=== PATIENT | female | born 1965 | race Caucasian/White ===

== ENCOUNTER → 2018-01-12 16:28 | Outpatient (CLI) | payer OTHER, BC, SELFPAY ==
--- NOTE | 2018-01-12 16:34 | HPBI_ITS ---
MAMMOGRAPHY - BILATERAL SCREENING REASON FOR EXAM: Female, 52 years old. Routine annual screening examination. PERTINENT HISTORY: Aunt with breast cancer. Remote left stereotactic biopsy. TECHNIQUE: Digital bilateral breast josé (3D mammographic acquisition) in the CC and MLO projections. 2-D mediolateral oblique (MLO) and craniocaudad (CC) views of both breasts were obtained. CAD: Full Field Digital Mammography with Computer Added Detection was performed. COMPARISON: Comparison is made with prior outside examination dated October 11, 2016. FINDINGS: Breast Composition: There are scattered areas of fibroglandular density. There are no dominant masses or suspicious calcifications. A tissue clip marker is seen in the deep mid medial portion of the left breast. No other significant abnormalities are identified. There has been no significant change since the prior study. HPBI/SCREENING MAMM (CAD), BILAT IMPRESSION: Stable bilateral screening mammogram. Yearly follow-up mammogram recommended. (A) ASSESSMENT CATEGORY: BIRADS Category 2: Benign. A letter regarding these results will be sent to the patient by the facility within 30 days. Approximately 10% of breast cancers are not detected by mammography. A normal mammogram should not delay biopsy of a clinically suspicious abnormality. [id number] Electronically Signed: Ang Morrissey MD at 8:59 EST Tel [phone], Service support ,
== END ==
PROVIDERS: Family Provider Family Medicine; PCP Family Medicine; Visit Provider Obstetrics & Gynecology
DX: Z12.31 Encounter for screening mammogram for malignant neoplasm of breast (principal)
CPT/HCPCS: 77063; 77067

== ENCOUNTER 2018-01-22 21:04 | Emergency (ER) | payer OTHER, BC, SELFPAY ==
[2018-01-22 21:05] VITALS: BP 158/95; PULSE 69; RESP 17; TEMP 37.2; O2SAT 100; BMI 27.8
--- NOTE | 2018-01-22 21:32 | EKG12_ITS ---
Test Reason : HYPERTENSION Blood Pressure : / mmHG Vent. Rate : 063 BPM Atrial Rate : 063 BPM P-R Int : 142 ms QRS Dur : 088 ms QT Int : 414 ms P-R-T Axes : 056 050 058 degrees QTc Int : 423 ms Normal sinus rhythm Nonspecific ST abnormality Abnormal ECG Confirmed by MATTHIEU SILVESTRE, DIOGENES ([id number]), editor continuity and script ABDIRIZAK GREEN ([id number]) on 01/24/2018 4:12:35 PM Referred By: Shawna Prince Confirmed By:DIOEGNES SOMMERS MD
--- NOTE | 2018-01-22 21:32 | ED.VISSUMM ---
- ER Visit Summary Date of Service: 01/22/18 Chief Complaint: Acute on chronic hypertension History of Present Illness: The patient is a 52 F prior history of hypertension for a 1 time she was on lisinopril. Her blood pressures got better and he took her off medication. Recently she has had URI type symptoms with sinus congestion and cough. Symptoms have been ongoing for about a week. [facility] her on Zithromax Z-SEAN. She denies any purulent discharge or sinus headache. She did recently help move a family member and had some left chest wall discomfort and low back discomfort. She denies any exertional chest pain or shortness of breath. She has no cardiac history. She is a non-smoker. Physical Examination: Well-appearing middle-age female. Initial vital signs blood pressure 150/95. Pulse ox 100% room air no signs of hypoxia. Temperature 99. Patient does not look septic or toxic. No acute distress. HEENT exam TMs normal. Posterior pharynx moist and pink. No frontal maxillary sinus tenderness. No purulent discharge. Neck nontender no lymphadenopathy. Lungs auscultation bilaterally. Heart regular rate and rhythm no murmur. Chest nontender. Abdomen soft nontender. Normal bowel sounds no peritoneal signs. Moving all 4 extremities. Neurovascular intact. Bilateral 5 out of 5 summer law associate strength. Bilateral dorsi plantar flexion. Back exam normal. Lungs are clear posteriorly. Neurologic exam normal. NIH is 0. Test Results: EKG shows normal sinus rhythm rate of 63 again abnormality. No signs of OK or ischemia. Emergency Department Course and Treatment: Likely patient has a viral URI. She can stop the Zithromax. Her repeat blood pressure is 144/91. Treatment Plan: Patient will be discharged to home. She will log her blood pressures twice daily. She will stay on the lisinopril daily. Follow-up with her primary care physician Dr. Jerry Brown and they will evaluate her blood pressures and decide further treatment. Disposition: Discharge Impression: Acute on chronic hypertension Viral URI This note was generated with M[employer] dictation software. It may contain incorrect words, spelling, and punctuation that were not noted in review of the chart prior to signing ED Disposition - Plan for ED Patient: Disposition: Home or Assisted Living Chief Complaint: Hypertension Instructions: ED HTN Established Referrals: Jerry Brown MD [Primary Care Provider] - 1 Week Additional Instructions: Continue lisinopril either a once daily or 1 pill twice daily. Log your blood pressures twice daily. Bring those readings with you when you follow-up with your primary care physician. Most likely you have a viral upper respiratory infection may stop the antibiotic.
--- NOTE | 2018-01-22 21:35 | ED.DCSUM_ITS ---
- ER Visit Summary Date of Service: 01/22/18 Chief Complaint: Acute on chronic hypertension History of Present Illness: The patient is a 52 F prior history of hypertension for a 1 time she was on lisinopril. Her blood pressures got better and he took her off medication. Recently she has had URI type symptoms with sinus congestion and cough. Symptoms have been ongoing for about a week. [facility] her on Zithromax Z-SEAN. She denies any purulent discharge or sinus headache. She did recently help move a family member and had some left chest wall discomfort and low back discomfort. She denies any exertional chest pain or shortness of breath. She has no cardiac history. She is a non-smoker. Physical Examination: Well-appearing middle-age female. Initial vital signs blood pressure 150/95. Pulse ox 100% room air no signs of hypoxia. Temperature 99. Patient does not look septic or toxic. No acute distress. HEENT exam TMs normal. Posterior pharynx moist and pink. No frontal maxillary sinus tenderness. No purulent discharge. Neck nontender no lymphadenopathy. Lungs auscultation bilaterally. Heart regular rate and rhythm no murmur. Chest nontender. Abdomen soft nontender. Normal bowel sounds no peritoneal signs. Moving all 4 extremities. Neurovascular intact. Bilateral 5 out of 5 career resource specialist strength. Bilateral dorsi plantar flexion. Back exam normal. Lungs are clear posteriorly. Neurologic exam normal. NIH is 0. Test Results: EKG shows normal sinus rhythm rate of 63 again abnormality. No signs of LA or ischemia. Emergency Department Course and Treatment: Likely patient has a viral URI. She can stop the Zithromax. Her repeat blood pressure is 144/91. Treatment Plan: Patient will be discharged to home. She will log her blood pressures twice daily. She will stay on the lisinopril daily. Follow-up with her primary care physician Dr. Jerry Brown and they will evaluate her blood pressures and decide further treatment. Disposition: Discharge Impression: Acute on chronic hypertension Viral URI This note was generated with [employer] dictation software. It may contain incorrect words, spelling, and punctuation that were not noted in review of the chart prior to signing ED Disposition - Plan for ED Patient: Disposition: Home or Assisted Living Chief Complaint: Hypertension Instructions: ED HTN Established Referrals: Jerry Brown MD [Primary Care Provider] - 1 Week Additional Instructions: Continue lisinopril either a once daily or 1 pill twice daily. Log your blood pressures twice daily. Bring those readings with you when you follow-up with your primary care physician. Most likely you have a viral upper respiratory infection may stop the antibiotic.
[2018-01-22 21:56] VITALS: BP 149/95; PULSE 74; RESP 20; O2SAT 98
== END 2018-01-22 21:57 | disposition home or self-care (01) ==
PROVIDERS: Emergency Provider Emergency Medicine; Family Provider Family Medicine; PCP Family Medicine
DX: I10 Essential (primary) hypertension (principal); J06.9 Acute upper respiratory infection, unspecified
CPT/HCPCS: 93005; 99282

== ENCOUNTER → 2018-11-22 13:40 | Outpatient (CLI) | payer OTHER, BC, SELFPAY | PROVIDERS: Family Provider Family Medicine; PCP Family Medicine; Referring Provider Family Medicine; Visit Provider Family Medicine | DX: J02.9 Acute pharyngitis, unspecified (principal) | CPT/HCPCS: 87070 ==

== ENCOUNTER → 2019-03-28 16:02 | Outpatient (CLI) | payer OTHER, BC, SELFPAY ==
--- NOTE | 2019-03-28 16:07 | BI_ITS ---
MAMMOGRAPHY - BILATERAL SCREENING REASON FOR EXAM: Female, 53 years old. Routine annual screening examination. PERTINENT HISTORY: Aunt with breast cancer. Remote left stereotactic breast biopsy. TECHNIQUE: Digital bilateral breast josé (3D mammographic acquisition) in the CC and MLO projections. 2-D mediolateral oblique (MLO) and craniocaudad (CC) views of both breasts were obtained. CAD: Full Field Digital Mammography with Computer Added Detection was performed. COMPARISON: Comparison is made with prior study dated January 12, 2018 and September 08, 2015. FINDINGS: Breast Composition: There are scattered areas of fibroglandular density. There are no dominant masses or suspicious calcifications. Once again, a tissue clip marker is seen in the mid inferior medial anterior aspect of the left breast. No other significant abnormalities are identified. There has been no significant change since the prior study. BI/SCREENING MAMM (CAD), BILAT IMPRESSION: Stable bilateral screening mammogram. Yearly follow-up mammogram recommended. (A) ASSESSMENT CATEGORY: BIRADS Category 2: Benign. A letter regarding these results will be sent to the patient by the facility within 30 days. Approximately 10% of breast cancers are not detected by mammography. A normal mammogram should not delay biopsy of a clinically suspicious abnormality. [id number] Electronically Signed: Ang Morrissey, at 9:47 EDT , Service support ,
== END ==
PROVIDERS: Family Provider Family Medicine; PCP Family Medicine; Referring Provider Obstetrics & Gynecology; Visit Provider Obstetrics & Gynecology
DX: Z12.31 Encounter for screening mammogram for malignant neoplasm of breast (principal)
CPT/HCPCS: 77063; 77067

== ENCOUNTER → 2020-06-13 08:17 | Outpatient (CLI) | payer OTHER, BC, SELFPAY ==
[2020-06-13 10:40] LABS: Anion Gap 4 (5-15); BUN 13 mg/dL (7-18); BUN/Creat Ratio 15.3 RATIO (10-20); Calcium,Total 8.8 mg/dL (8.5-10.1); Chloride 105 mmol/L (98-107); Cholesterol 242 mg/dL (200); Creatinine, Serum 0.85 mg/dL (0.55-1.02); EST Glomerular Filtration Rate 74 mL/min (>60); Est Glom Filt Rate - Afr Amer 90 mL/min (>60); Glucose 88 mg/dL (74-106); High Density Lipoprotein 63 mg/dL; Potassium 3.8 mmol/L (3.5-5.1); Sodium Level 138 mmol/L (136-145); Triglycerides 112 mg/dL; Very Low Density Lipoprotein 22 mg/dL (5-40)
== END ==
PROVIDERS: PCP Family Medicine; Referring Provider Family Medicine; Visit Provider Family Medicine
DX: I10 Essential (primary) hypertension (principal)
CPT/HCPCS: 36415; 80048; 80061

== ENCOUNTER → 2020-12-19 07:05 | Outpatient (CLI) | payer OTHER, SELFPAY ==
[2020-12-19 10:26] LABS: Anion Gap 3 (5-15); BUN 11 mg/dL (7-18); BUN/Creat Ratio 14.2 RATIO (10-20); Calcium,Total 9.1 mg/dL (8.5-10.1); Chloride 108 mmol/L (98-107); Cholesterol 258 mg/dL (200); Creatinine, Serum 0.77 mg/dL (0.55-1.02); EST Glomerular Filtration Rate 83 mL/min (>60); Est Glom Filt Rate - Afr Amer 100 mL/min (>60); Free T3 2.1 pg/mL (2.18-3.98); Glucose 91 mg/dL (74-106); High Density Lipoprotein 68 mg/dL; Sodium Level 141 mmol/L (136-145); T4 Free Direct 0.75 ng/dL (0.76-1.46); Thyroid Stim Hormone (TSH) 6.28 uIU/mL (0.358-3.74); Triglycerides 137 mg/dL; Very Low Density Lipoprotein 27 mg/dL (5-40)
== END ==
PROVIDERS: PCP Family Medicine; Referring Provider Family Medicine; Visit Provider Family Medicine
DX: E03.9 Hypothyroidism, unspecified (principal); I10 Essential (primary) hypertension
CPT/HCPCS: 36415; 80048; 80061; 84439; 84443; 84481

== ENCOUNTER → 2021-04-27 08:02 | Outpatient (CLI) | payer OTHER, SELFPAY ==
[2021-04-27 10:37] LABS: Cholesterol 245 mg/dL (200); Free T3 2.3 pg/mL (2.18-3.98); High Density Lipoprotein 63 mg/dL; Thyroid Stim Hormone (TSH) 8.21 uIU/mL (0.358-3.74); Triglycerides 172 mg/dL; Very Low Density Lipoprotein 34 mg/dL (5-40)
== END ==
PROVIDERS: PCP Family Medicine; Referring Provider Family Medicine; Visit Provider Family Medicine
DX: E03.9 Hypothyroidism, unspecified (principal)
CPT/HCPCS: 36415; 80061; 84443; 84481

== ENCOUNTER → 2021-07-31 16:47 | Outpatient (CLI) | payer OTHER, SELFPAY ==
[2021-07-31 17:30] LABS: Absolute Lymphocyte Count 2.15 X10^3/uL (0.83-4.51); Absolute Neutrophil Count 2.4 X10^3/uL (2.0-7.7); Basophil# 0.05 X10^3/uL; Eosinophil# 0.09 X10^3/uL; Eosinophils% 1.7 % (0-5); Hematocrit 43.5 % (37-47); Hemoglobin 14.2 g/dL (12.0-15.0); Lymphocyte # 2.15 X10^3/ul (0.83-4.51); Lymphocyte % 41.6 % (19-41); Mean Corp Hgb Conc 32.6 g/dL (32-36); Mean Corpuscular Hgb 29.6 pg (27.0-32.0); Mean Corpuscular Volume 90.8 fL (81-99); Mean Platelet Vol. 11.3 fl (6.2-12.0); Monocyte# 0.52 X10^3/uL; Monocyte% 10.1 % (0-10); NRBC Flagged by Analyzer 0 % (0-5); Neutrophil # 2.35 X10^3/uL (2.7-7.7); Neutrophil % 45.4 % (47-70); Platelet Count 250 K/mm3 (150-450); RBC Distribution Width CV 13.6 % (11.6-14.6); RBC Distribution Width SD 45.9 fl (35.1-43.9); Red Blood Count 4.79 M/mm3 (4.2-5.4); White Blood Count 5.2 K/mm3 (4.4-11.0)
[2021-07-31 18:18] LABS: ALB/GLOB Ratio 1.3 RATIO (0.9-2.4); AST(SGOT) 21 U/L (15-37); Alanine Aminotransfer ALT/SGPT 38 U/L (13-56); Albumin, Serum 4.3 g/dL (3.2-5.0); Alkaline Phosphatase 72 U/L (45-117); Anion Gap 5 (5-15); BUN 10 mg/dL (7-18); BUN/Creat Ratio 14.8 RATIO (10-20); Calcium,Total 8.8 mg/dL (8.5-10.1); Chloride 106 mmol/L (98-107); Cholesterol 241 mg/dL (200); Creatinine, Serum 0.68 mg/dL (0.55-1.02); EST Glomerular Filtration Rate 96 mL/min (>60); Est Glom Filt Rate - Afr Amer 116 mL/min (>60); Globulin 3.3 g/dL (2.2-4.2); Glucose 89 mg/dL (74-106); High Density Lipoprotein 65 mg/dL; Potassium 3.9 mmol/L (3.5-5.1); Protein, Total 7.6 g/dL (6.4-8.2); Sodium Level 138 mmol/L (136-145); T4 Free Direct 0.78 ng/dL (0.76-1.46); Thyroid Stim Hormone (TSH) 5.67 uIU/mL (0.358-3.74); Triglycerides 120 mg/dL; Very Low Density Lipoprotein 24 mg/dL (5-40)
== END ==
PROVIDERS: PCP Family Medicine; Referring Provider Family Medicine; Visit Provider Family Medicine
DX: E03.9 Hypothyroidism, unspecified (principal); E55.9 Vitamin D deficiency, unspecified; E78.5 Hyperlipidemia, unspecified
CPT/HCPCS: 36415; 80053; 80061; 82306; 84439; 84443; 85025

== ENCOUNTER 2021-08-26 10:48 | Inpatient (IN) | payer OTHER, SELFPAY ==
[2021-08-26] VITALS (10 sets, daily range): BP systolic 114–164; BP diastolic 67–102; PULSE 66–97; RESP 16–24; TEMP 36.6–37.3; O2SAT 87–99; BMI 27.3; BMI 26.9
--- NOTE | 2021-08-26 11:12 | EDS_ITS ---
HPI History of Present Illness Chief Complaint: Shortness of Breath Informant: patient Onset/Context/Timing Onset: Days Context: Gradual Onset Current Severity: Moderate Maximum Severity: Moderate Narrative Narrative: Patient present secondary to increase shortness of breath with Covid. She developed symptoms 11 days ago and tested +9 days ago at [facility]. Patient is been monitoring her oxygen levels at home. Yesterday she stated they would drop with activity but then returned to normal. Today they seem to be staying low and she feels very weak. She denies having significant fever. She has recently started producing yellow sputum with her cough. PFSH PFS Medical History Asthma Hypertension Hypothyroid Home Medications Cardioplus 1 tab PO DAILY 01/22/18 [History Last Taken Unknown] Cyroota 1 tab PO DAILY 01/22/18 [History Last Taken Unknown] albuterol sulfate [Proair Hfa (SP)Vent Pts] 1 - 2 puff INHALATION Q4H PRN PRN 01/22/18 [History Last Taken Unknown] azithromycin 250 mg PO DAILY 01/22/18 [History Last Taken Unknown] Allergy/AdvReac Type Severity Reaction Status Date / Time gluten AdvReac Diarrhea Verified 08/26/21 10:51 Social History Smoking Status: Never smoker ROS ROS ED Constitutional Constitutional ED: Denies chills or fever(s) Eyes Eyes: Denies change in vision ENT ENT ED: Denies sore throat Cardiovascular Cardiovascular: Denies chest pain Respiratory/Chest Respiratory/Chest: Reports cough, dyspnea and sputum Gastrointestinal Gastrointestinal: Reports diarrhea and nausea; Denies abdominal pain or vomiting Genitourinary Genitourinary ED: Denies dysuria Musculoskeletal Musculoskeletal: Reports myalgias; Denies back pain Integumentary Denies rash Neurologic Neurologic: Reports weakness; Denies headache(s) Allergic/Immunologic Allergic/Immunologic ED: Denies urticaria EXAM Physical Exam Const Vital Signs: 08/26/21 10:48 08/26/21 11:54 08/26/21 11:57 Temperature 97.8 F 97.8 F Temperature Source Temporal Temporal Pulse Rate 97 76 Respiratory Rate 22 H 24 H Respiratory Effort Normal Non-Labored Respiratory Depth Normal Respiratory Pattern Normal Blood Pressure 134/83 H 150/87 H Blood Pressure Mean 100 108 Pulse Ox 87 99 Oxygen Delivery Method Room Air Nasal Cannula Nasal Cannula Oxygen Flow Rate (L/min) 2 2 08/26/21 12:48 08/26/21 13:50 Temperature Temperature Source Pulse Rate 72 76 Respiratory Rate 20 H 18 Respiratory Effort Respiratory Depth Respiratory Pattern Blood Pressure 164/102 H 149/88 H Blood Pressure Mean 122 108 Pulse Ox 99 96 Oxygen Delivery Method Nasal Cannula Nasal Cannula Oxygen Flow Rate (L/min) 2 2 Positive well nourished and well developed General Appearance ED: well developed HEENT Reports normocephalic and head/scalp atraumatic Eyes PERRL and EOMs intact bilaterally Neck supple Chest Wall inspection of chest normal and palpation of chest normal Resp normal respiratory effort and clear to auscultation bilaterally Cardio regular rate and regular rhythm GI normal to inspection, nondistended, normoactive bowel sounds Palpation: soft Extremity normal to inspection Neuro oriented x3 and no sensory deficits noted Sensorium / Orientation: alert Motor Exam: strength 5/5 throughout Psych mental status grossly normal Skin no rashes or lesions noted MDM MDM MDM Narrative Medical decision making narrative: Lab work, chest x-ray obtained. Patient was given a dose of Decadron. Because the patient has had recent worsening in her breathing and is bringing up yellow sputum she was covered with Rocephin and Zithromax for potential secondary bacterial pneumonia. Blood cultures and sputum culture ordered. Lab Data Attestation: I reviewed the patient's lab results. Labs: Laboratory Results - last 24 hr 08/26/21 08/26/21 08/26/21 11:38 11:38 11:38 WBC 3.4 L RBC 4.73 Hgb 13.9 Hct 42.3 MCV 89.4 MCH 29.4 MCHC 32.9 RDW Std Deviation 42.7 RDW Coeff of Ish 13.0 Plt Count 306 MPV 9.7 Immature Gran % (Auto) 0.300 Neut % (Auto) 64.6 Lymph % (Auto) 21.5 Whitfield % (Auto) 13.3 H Eos % (Auto) 0.0 Baso % (Auto) 0.3 Absolute Neuts (auto) 2.2 Absolute Lymphs (auto) 0.73 L Nucleated RBC % 0 D-Dimer Quant (PE/DVT) Cancelled Sodium 138 Potassium 3.8 Chloride 100 Carbon Dioxide 31.0 Anion Gap 7 BUN 8 Creatinine 0.67 Estim Creat Clear Calc 93.34 Est GFR (MDRD) Af Amer 118 Est GFR (MDRD) Non-Af 98 BUN/Creatinine Ratio 12.0 Glucose 103 Lactic Acid Calcium 8.5 Total Bilirubin 0.50 AST 45 H ALT 53 Alkaline Phosphatase 93 Total Protein 7.3 Albumin 3.0 L Globulin 4.3 H Albumin/Globulin Ratio 0.7 L 08/26/21 08/26/21 08/26/21 11:38 12:00 12:36 WBC RBC Hgb Hct MCV MCH MCHC RDW Std Deviation RDW Coeff of Ish Plt Count MPV Immature Gran % (Auto) Neut % (Auto) Lymph % (Auto) Whitfield % (Auto) Eos % (Auto) Baso % (Auto) Absolute Neuts (auto) Absolute Lymphs (auto) Nucleated RBC % D-Dimer Quant (PE/DVT) Cancelled 1.24 H* Sodium Potassium Chloride Carbon Dioxide Anion Gap BUN Creatinine Estim Creat Clear Calc Est GFR (MDRD) Af Amer Est GFR (MDRD) Non-Af BUN/Creatinine Ratio Glucose Lactic Acid 1.0 Calcium Total Bilirubin AST ALT Alkaline Phosphatase Total Protein Albumin Globulin Albumin/Globulin Ratio Radiography Chest X-Ray - ED: 1 View, Read by ED Physician, Right Infiltrate and Left Infiltrate Diagnostic Testing: Radiology Impression Chest X-Ray 08/26/21 11:15 IMPRESSION: Multilobar pulmonary infiltrates suggesting pneumonia, including viral causes. Electronically Signed: Elvis Whitlock MD ([facility]) at 11:53 EDT , Service support , Chest CTA 08/26/21 13:11 IMPRESSION: 1. No central or segmental pulmonary embolism. 2. Multilobar pulmonary infiltrates with features commonly reported with COVID pneumonia. Electronically Signed: Elvis Whitlock MD ([facility]) at 13:46 EDT , Service support , Treatment and Re-Evaluation Comments:: Chest x-ray per my interpretation shows mild bilateral infiltrates. Radiologist interpretation is reviewed. Lab work reveals normal lactic acid. D-dimer is elevated at 1.24. White count is 3.4 consistent with viral infection. CTA of the chest is obtained and does reveal bilateral infiltrates but no evidence of pulmonary embolism. The patient is hypoxic on room air, 87% when sitting at rest. She reports significant dyspnea with any exertion. I will speak with hospitalist regarding admission for further treatment. Discharge Plan Triage Chief Complaint: Shortness of Breath ED Provider: Daphnie Stokes Dx/Rx/DC Orders Clinical Impression: COVID-19, Hypoxia Prescriptions: No Action azithromycin 250 MG tablet 250 mg PO DAILY RF: 0 albuterol sulfate [ProAir HFA] 1 PUFF inhaler 1 - 2 puff inhalation Q4H PRN PRN (Reason: Sob &/Or Wheezing) RF: 0 Cardioplus 1 tab PO DAILY RF: 0 Cyroota 1 tab PO DAILY RF: 0 Primary Care Provider: Jerry Lund Referrals: Jerry Lund MD [Primary Care Provider] - Disposition Disposition: Acute Care [facility]
--- NOTE | 2021-08-26 11:15 | RAD_ITS ---
STUDY: X-RAY CHEST REASON FOR EXAM: Female, 56 years old. cough TECHNIQUE: AP COMPARISON: 04/01/2016 FINDINGS: EKG leads project over the chest. Patchy pulmonary infiltrates involving the periphery of the mid and lower lung zones new since the prior study. There is no demonstrated pleural abnormality. Normal size heart. Normal mediastinum and eris. Normal visualized pulmonary arteries. Normal visualized aortic arch and descending thoracic aorta. Normal visualized thoracic spine. Normal visualized ribs, clavicles, and shoulders. There is no demonstrated abnormality of the visualized soft tissue structures of the upper abdomen. RAD/Chest 1 View (Portable) IMPRESSION: Multilobar pulmonary infiltrates suggesting pneumonia, including viral causes. Electronically Signed: Elvis Whitlock MD ([place]) at 11:53 EDT , Service support ,
[2021-08-26] MEDS: dexAMETHasone 4 MG/ML Vial 6 MG IV (11:43)
[2021-08-26] MEDS: Ceftriaxone 1 GM/50 ML BAG IV (11:43)
[2021-08-26 11:52] LABS: Absolute Lymphocyte Count 0.73 X10^3/uL (0.83-4.51); Absolute Neutrophil Count 2.2 X10^3/uL (2.0-7.7); Basophil# 0.01 X10^3/uL; Basophil% 0.3 % (0-1); Hematocrit 42.3 % (37-47); Hemoglobin 13.9 g/dL (12.0-15.0); Lymphocyte # 0.73 X10^3/ul (0.83-4.51); Lymphocyte % 21.5 % (19-41); Mean Corp Hgb Conc 32.9 g/dL (32-36); Mean Corpuscular Hgb 29.4 pg (27.0-32.0); Mean Corpuscular Volume 89.4 fL (81-99); Mean Platelet Vol. 9.7 fl (6.2-12.0); Monocyte# 0.45 X10^3/uL; Monocyte% 13.3 % (0-10); NRBC Flagged by Analyzer 0 % (0-5); Neutrophil # 2.19 X10^3/uL (2.7-7.7); Neutrophil % 64.6 % (47-70); Platelet Count 306 K/mm3 (150-450); RBC Distribution Width SD 42.7 fl (35.1-43.9); Red Blood Count 4.73 M/mm3 (4.2-5.4); White Blood Count 3.4 K/mm3 (4.4-11.0)
--- NOTE | 2021-08-26 11:58 | NURSING ---
PER LAB, BLUE TOP TOO SHORT
[2021-08-26 12:10] LABS: ALB/GLOB Ratio 0.7 RATIO (0.9-2.4); AST(SGOT) 45 U/L (15-37); Alanine Aminotransfer ALT/SGPT 53 U/L (13-56); Alkaline Phosphatase 93 U/L (45-117); Anion Gap 7 (5-15); BUN 8 mg/dL (7-18); Calcium,Total 8.5 mg/dL (8.5-10.1); Chloride 100 mmol/L (98-107); Creatinine, Serum 0.67 mg/dL (0.55-1.02); EST Glomerular Filtration Rate 98 mL/min (>60); Est Glom Filt Rate - Afr Amer 118 mL/min (>60); Estimated Creatinine Clearance 93.34 ml/min; Globulin 4.3 g/dL (2.2-4.2); Glucose 103 mg/dL (74-106); Potassium 3.8 mmol/L (3.5-5.1); Protein, Total 7.3 g/dL (6.4-8.2); Sodium Level 138 mmol/L (136-145)
[2021-08-26] MEDS: Ondansetron 4 MG/2 ML Vial IV (12:59)
[2021-08-26 13:08] LABS: D-Dimer Quantitative (DVT/PE) 1.24 FEU/ug/m (0.27-0.49)
--- NOTE | 2021-08-26 13:11 | CT_ITS ---
STUDY: CTA CHEST REASON FOR EXAM: Female, 56 years old. sob, covid, elevated d-dimer RADIATION DOSAGE (If Supplied By Facility): CTDIvol = ( 8.67 ) mGy, DLP = ( 297.46 ) mGycm TECHNIQUE: The examination was performed with the intravenous administration of IV 100ML ISOVUE 370. Post-processing of the angiographic images was performed, with multiplanar reformation and 3D reconstruction. Individualized dose optimization techniques were used for this CT. COMPARISON: None. FINDINGS: Normal enhancement of the main pulmonary artery and right and left pulmonary arteries. Normal enhancement of the bilateral peripheral pulmonary arteries. There is no demonstrated pulmonary embolism. Normal thoracic aorta and visualized great vessels. There is no demonstrated aortic dissection. Normal heart and pericardium. Normal mediastinum. Normal hilar regions. Normal visualized trachea and bronchi. Multilobar groundglass and consolidative infiltrates but no cavitating process. Likely superimposed atelectasis of the bilateral lower lobes. Normal pleura. Normal chest wall structures. Normal osseous structures. Normal visualized upper abdomen. CT/CTA Chest W/WO Contrast IMPRESSION: 1. No central or segmental pulmonary embolism. 2. Multilobar pulmonary infiltrates with features commonly reported with COVID pneumonia. Electronically Signed: Elvis Whitlock MD ([place]) at 13:46 EDT , Service support ,
--- NOTE | 2021-08-26 14:13 | HP.PCM.HOS_ITS ---
HPI - General General Date of Admission: 08/26/21 Date of Service: 08/26/21 Chief Complaint: COVID, worsening dyspnea HPI Narrative The patient is a 56 y/o F w/ PMHx: Asthma following with Dr. Pabon, HTN, Hypothyroidism, unvaccinated COVID status which she notes was primarily secondary to concerns for any associated chronic fatigue who presents to the [facility] ED on 08/26/21 with history of onset COVID sxs 11 days prior with testing at the [facility] 9 days prior with low grade T, chills, headache, sore throat, cough, dyspnea, body aches, nausea without emesis and diarrhea, transient decreased sense of taste and smell progressively worsening with decreased oxygenation at home on her pulse ox. Work-up in the ED included T 97.8, heart rate 97, BP 134/83, respiratory rate 22-24, initially 87% on room air with improvement to 96% on 2 L nasal cannula, CBC with WBC 3.4, hemoglobin 13.9, platelets 306 with lymphopenia, D-dimer 1.24, CMP with AST/ALT 45/53 otherwise not marked appearing, lactic acid 1.0, chest x-ray with multi lobar pneumonia, CTPA with no central segmental pulmonary embolism, multilobar pneumonia infiltrates consistent with Covid pneumonia. In the ED patient ministered Zofran, Decadron 6 mg IV x1 as well as Rocephin and azithromycin. COUNTS INCLUDE 234 BEDS AT THE [facility] Medical History (Updated 08/26/21 @ 14:[address] Daphnie Stokes MD) Asthma Hypertension Hypothyroid Home Medications albuterol sulfate [Proair Hfa (SP)Vent Pts] 1 - 2 puff INHALATION Q4H PRN PRN 01/22/18 [History Last Taken Unknown] Cardio-Plus 1 cap PO/SL DAILY 08/26/21 [History Last Taken 2 Weeks Ago ~08/12/21] Cyruta 1 tab PO/SL DAILY 08/26/21 [History Last Taken 2 Weeks Ago ~08/12/21] Thyrostim 1 cap PO/SL DAILY 08/26/21 [History Last Taken 08/25/21] ascorbic acid (vitamin C) 1 g PO DAILY 08/26/21 [History Last Taken 08/25/21] cholecalciferol (vitamin D3) 50 - 100 mcg PO DAILY 08/26/21 [History Last Taken 08/25/21] codeine-guaifenesin 10 ml PO QHS 08/26/21 [History Last Taken 08/25/21] guaifenesin [Mucinex] 600 mg PO DAILY 08/26/21 [History Last Taken 08/25/21] ibuprofen 200 - 400 mg PO Q6H PRN 08/26/21 [History Last Taken 08/25/21] lisinopril 10 mg PO DAILY 08/26/21 [History Last Taken 08/26/21] ondansetron HCl 4 mg PO Q4H PRN 08/26/21 [History Last Taken 08/25/21] Allergy/AdvReac Type Severity Reaction Status Date / Time gluten AdvReac Diarrhea Verified 08/26/21 10:51 Family History (Updated 08/26/21 @ 14:[address] Jie Baker MD) Mother Brain aneurysm 76. other (Father young secondary to excavating accident. No medical history including HD, DM, CA.) Surgical History (Updated 08/26/21 @ 14:[address] Jie Baker MD) H/O breast biopsy H/O: hysterectomy S/P cholecystectomy S/P exploratory laparotomy S/P foot surgery Social History (Updated 08/26/21 @ 14:[address] Jie Baker MD) household members: spouse Smoking Status: Never smoker alcohol intake: never substance use type: does not use ROS ROS Narrative Admission Review of Systems: CONSTITUTIONAL: No weight loss, + low grade fever, chills, weakness or fatigue. HEENT: + LEVI, congestion, sore throat. Eyes: No visual loss, blurred vision, double vision or yellow sclerae. Ears, Nose, Throat: No hearing loss, sneezing. SKIN: No rash or itching, lesions, wounds. CARDIOVASCULAR: No chest pain, chest pressure or chest discomfort, palpitations, edema, orthopnea, syncopal events. RESPIRATORY: + shortness of breath, cough without marked sputum, No wheezing, h emoptysis. GASTROINTESTINAL:+ anorexia, nausea without vomiting or diarrhea, No abdominal pain, melena, BRBPR. GENITOURINARY: No dysuria, frequency, urgency or retention. NEUROLOGICAL: + headache, No dizziness, syncope, paralysis, ataxia, numbness or tingling in the extremities, focal weakness, change in bowel or bladder control, seizure. MUSCULOSKELETAL: + muscle, back pain, joint pain or stiffness. HEMATOLOGIC: No anemia, bleeding or bruising. LYMPHATICS: No enlarged nodes. No history of splenectomy. PSYCHIATRIC: No history of depression or anxiety. ENDOCRINOLOGIC: No reports of sweating, cold or heat intolerance. No polyuria or polydipsia. ALLERGIES:+ history of asthma, hives, eczema or rhinitis. Vital Signs Vital Signs Vital Signs: 08/26/21 10:48 08/26/21 11:54 08/26/21 11:57 Temperature 97.8 F 97.8 F Temperature Source Temporal Temporal Pulse Rate 97 76 Respiratory Rate 22 H 24 H Respiratory Effort Normal Non-Labored Respiratory Depth Normal Respiratory Pattern Normal Blood Pressure 134/83 H 150/87 H Blood Pressure Mean 100 108 Pulse Ox 87 99 Oxygen Delivery Method Room Air Nasal Cannula Nasal Cannula Oxygen Flow Rate (L/min) 2 2 08/26/21 12:48 08/26/21 13:50 Temperature Temperature Source Pulse Rate 72 76 Respiratory Rate 20 H 18 Respiratory Effort Respiratory Depth Respiratory Pattern Blood Pressure 164/102 H 149/88 H Blood Pressure Mean 122 108 Pulse Ox 99 96 Oxygen Delivery Method Nasal Cannula Nasal Cannula Oxygen Flow Rate (L/min) 2 2 Weight Weight: 175 lb Body Mass Index (BMI) 27.3 Physical Exam Narrative Physical Examination: General: Awake, alert, oriented x 3 and cooperative, seated upright in the ED bed, fatigued, ill-appearing. Skin: Normal color, normal turgor, no icterus, no cyanosis. HEENT: AT/NC, EOMI, PERRLA, moderately dry MM, no carotid bruits or JVD noted. Lungs: Diffusely diminished, greater bases, decreased effort secondary to coughing elicited with deep breath, no rales, ronchi or wheezing. Heart: Mildly tachycardic with regular rhythm; no gallop, rub audible. Abdomen: Soft, overweight, NTTP, ND, mildly hyperactive BS, no obvious evidence of HSM. Extremities: No cyanosis, clubbing, or edema. Neurological: Patient awake, alert, oriented as noted, cognitive function intact; pupils equally reactive to light and accommodation, cranial nerves II- XII grossly normal, moving all 4 extremities, no focal deficits, strength moderately to severely global decrease secondary to acute presentation. Psychiatric: Affect appears fatigued, ill-appearing, no acute evidence of depressive or anxiety feelings. Results Lab / Micro Data Result Diagrams: 08/26/21 11:38 08/26/21 11:38 Labs: Laboratory Results - last 24 hr 08/26/21 11:38: D-Dimer Quant (PE/DVT) Cancelled 08/26/21 11:38: WBC 3.4 L, RBC 4.73, Hgb 13.9, Hct 42.3, MCV 89.4, MCH 29.4, MCHC 32.9, RDW Std Deviation 42.7, RDW Coeff of Ish 13.0, Plt Count 306, MPV 9.7, Immature Gran % (Auto) 0.300, Neut % (Auto) 64.6, Lymph % (Auto) 21.5, [place] % (Auto) 13.3 H, Eos % (Auto) 0.0, Baso % (Auto) 0.3, Absolute Neuts (auto) 2.2, Absolute Lymphs (auto) 0.73 L, Nucleated RBC % 0 08/26/21 11:38: Sodium 138, Potassium 3.8, Chloride 100, Carbon Dioxide 31.0, Anion Gap 7, BUN 8, Creatinine 0.67, Estim Creat Clear Calc 93.34, Est GFR (MDRD) Af Amer 118, Est GFR (MDRD) Non-Af 98, BUN/Creatinine Ratio 12.0, Glucose 103, Calcium 8.5, Total Bilirubin 0.50, AST 45 H, ALT 53, Alkaline Phosphatase 93, Total Protein 7.3, Albumin 3.0 L, Globulin 4.3 H, Albumin/Globulin Ratio 0.7 L 08/26/21 11:38: Lactic Acid 1.0 08/26/21 12:00: D-Dimer Quant (PE/DVT) Cancelled 08/26/21 12:36: D-Dimer Quant (PE/DVT) 1.24 H* Radiology Impression Chest X-Ray 08/26/21 11:15 IMPRESSION: Multilobar pulmonary infiltrates suggesting pneumonia, including viral causes. Electronically Signed: Elvis Whitlock MD (Brooks) at 11:53 EDT , Service support , Chest CTA 08/26/21 13:11 IMPRESSION: 1. No central or segmental pulmonary embolism. 2. Multilobar pulmonary infiltrates with features commonly reported with COVID pneumonia. Electronically Signed: Elvis Whitlock MD (Brooks) at 13:46 EDT , Service support , Assessment & Plan Assessment/Plan (1) COVID-19: (2) Hypoxia: PLAN: The patient is a 56 y/o F w/ PMHx: Asthma following with Dr. Pabon, HTN, Hypothyroidism, unvaccinated COVID status which she notes was primarily secondary to concerns for any associated chronic fatigue who presents to the [facility] ED on 08/26/21 with history of onset COVID sxs 11 days prior with testing at the [facility] 9 days prior with worsening dyspnea and hypoxia on pulse ox at home. 1. Acute Hypoxic with Acute Bilateral Pneumonia secondary to Acute Viral Syndrome, COVID-19: Will admit to the MS floor on telemetry, maintain on COVID precautions, given severity will require 20 days, will maintain on oxygen with wean as tolerated to room air, PRN albuterol, HOB, IS parameters w/ pending sputum cultures, respiratory viral panel and urine antigens, will obtain procalcitonin, CRP, CPK, Ferritin, LDH, trop and BNP, continue supportive care including q 2 hour turning including prone given no prone bed availability and judicious hydration, closely monitor for worsening status for ARDS and multiorgan failure, will initiate and continue IV decadron x 10 doses, given presentation timeline not candidate for will IV remedesivir. 2. Chronic Asthma: Will maintain on oxygen with wean as tolerated to room air, PRN albuterol, not on routine inhalers at home, HOB, IS parameters. 3. Hypertension: Will continue home lisinopril regimen, as needed IV hydralazine in interim. 4. Hypothyroidism: Patient takes OTC supplements, has upcoming visit with PCP to review labs and consider transition to synthroid/levothyroxine. 5. DVT prophylaxis: SCDs, lovenox. 6. CODE status: Patient HCPOA and living will is not in place. and the patient note that this is on her list of things to complete. Discussed CODE status at length including difference between FULL code, DNR-CCA and DNR-CC status. Following discussions about the differences in these status, requested Full Code status. Patient amenable to airvo and BIPAP if necessary. Advanced Care Planning Face to Face Time: 16 minutes. Charges/Coding Visit Charges Inpatient E&M: 55914 Init Hosp L3 Procedures Hospitalists Procedures: 40260 Advncd Care Plan 30 Min
--- NOTE | 2021-08-26 14:18 | NURSING ---
DR MARTINEZ FOR DR SRIVASTAVA
--- NOTE | 2021-08-26 14:27 | NURSING ---
MED SURG WHITE COVID PNEUMONIA, HYPOXIA
[2021-08-26 15:26] LABS: Ferritin 615 ng/mL (8-252); LDH 401 U/L (84-246); Magnesium 2.5 mg/dL (1.6-2.6)
[2021-08-26 17:12] LABS: Procalcitonin < 0.04 ng/mL (0.00-0.09)
[2021-08-26] MEDS: Famotidine 20 MG Tablet PO (22:00)
[2021-08-26] MEDS: Enoxaparin 30 MG/0.3 ML Syringe SC (22:00)
[2021-08-26] MEDS: MELATONIN 3 MG TABLET PO (22:15)
[2021-08-27] VITALS (8 sets, daily range): BP systolic 125–140; BP diastolic 65–77; PULSE 66–74; RESP 16–18; TEMP 36.8–37.5; O2SAT 94–96
[2021-08-27] MEDS: Ondansetron 4 MG/2 ML Vial IV (03:08)
[2021-08-27] MEDS: 0.9% Saline Lock 10 ML Syringe IV ×2 (03:08→08:47)
[2021-08-27 07:16] LABS: Absolute Lymphocyte Count 0.96 X10^3/uL (0.83-4.51); Absolute Neutrophil Count 3.4 X10^3/uL (2.0-7.7); Basophil# 0.01 X10^3/uL; Basophil% 0.2 % (0-1); Hematocrit 42.2 % (37-47); Hemoglobin 14.1 g/dL (12.0-15.0); Lymphocyte # 0.96 X10^3/ul (0.83-4.51); Lymphocyte % 19.3 % (19-41); Mean Corp Hgb Conc 33.4 g/dL (32-36); Mean Corpuscular Hgb 29.2 pg (27.0-32.0); Mean Corpuscular Volume 87.4 fL (81-99); Mean Platelet Vol. 9.9 fl (6.2-12.0); Monocyte# 0.62 X10^3/uL; Monocyte% 12.4 % (0-10); NRBC Flagged by Analyzer 0 % (0-5); Neutrophil # 3.35 X10^3/uL (2.7-7.7); Neutrophil % 67.3 % (47-70); POSITIVE MORPHOLOGY YES; Platelet Count 357 K/mm3 (150-450); RBC Distribution Width CV 12.6 % (11.6-14.6); RBC Distribution Width SD 40.5 fl (35.1-43.9); Red Blood Count 4.83 M/mm3 (4.2-5.4)
[2021-08-27 07:23] LABS: Differential Indicated SCAN CRITERIA MET
[2021-08-27 07:42] LABS: Reactive Lymphocyte RARE
[2021-08-27 07:57] LABS: ALB/GLOB Ratio 0.7 RATIO (0.9-2.4); AST(SGOT) 37 U/L (15-37); Alanine Aminotransfer ALT/SGPT 52 U/L (13-56); Alkaline Phosphatase 88 U/L (45-117); Anion Gap 9 (5-15); BUN 11 mg/dL (7-18); BUN/Creat Ratio 18.3 RATIO (10-20); Calcium,Total 8.9 mg/dL (8.5-10.1); Chloride 102 mmol/L (98-107); EST Glomerular Filtration Rate 111 mL/min (>60); Est Glom Filt Rate - Afr Amer 134 mL/min (>60); Estimated Creatinine Clearance 104.24 ml/min; Globulin 4.5 g/dL (2.2-4.2); Glucose 100 mg/dL (74-106); Potassium 3.9 mmol/L (3.5-5.1); Protein, Total 7.5 g/dL (6.4-8.2); Sodium Level 137 mmol/L (136-145)
[2021-08-27] MEDS: Enoxaparin 30 MG/0.3 ML Syringe SC ×2 (08:45→21:13)
[2021-08-27] MEDS: Lisinopril 10 MG Tablet PO (08:46)
[2021-08-27] MEDS: Famotidine 20 MG Tablet PO ×2 (08:46→21:13)
[2021-08-27] MEDS: dexAMETHasone 4 MG/ML Vial 6 MG IV (08:46)
--- NOTE | 2021-08-27 10:08 | CASEMGMT ---
PEMA PRADO Assessment: Face to Face with pt for initial transition planning/care coordination assessment. PEMA PRADO introduced self and role at [facility], pt voices understanding and consents to assessment. Pt is A/O x4 and answers all questions appropriately at this time. Pt sitting up in bed with O2 on in no distress. Care providers, pharmacy, and demographics verified/updated. Admitting Dx: COVID/hypoxia PCP:Kevon Specialists:Pepper Crow Pharmacy: [facility] Retail Insurance: [employer], [employer] Plan Prescription Benefit: yes LW/HPOA: Pt denies having a LW/DPOA and denies need for info regarding AD. LNOK: Deep Luna, ; Sherri Moss, sister Living Arrangements: Pt lives with her in a single story house with 2 steps to enter. Pt reports being I in ADL's and denies concerns at home. Transportation: Pt drives self and denies concerns with transportation. DME/HHC/SNF: Pt has a pulse ox at home, denies hx of HHC or SNF stays. Pt states she was first tested for COVID at [facility]. She states her has not been tested. She does plan to quarantine from him by using separate bedrooms and bathrooms and wearing a mask while in the home together. Pt does have a renter who rents the basement but does not make contact with him/her. Pt states she does have family who can provide her with groceries and supplies. Discussed local in network DME companies should pt need O2 upon dc, she chooses [employer]. Pt states no concerns with going home at time of dc. Pt states no further concerns/needs. CM to follow. Advised pt to ask CM if any further question/concerns/needs arise, voices understanding. Pt Goal: Home Plan: Home, will follow for home O2.
--- NOTE | 2021-08-27 14:45 | PN.HOSP_ITS ---
Subjective Subjective Patient seen and examined. She still feels weak and lethargic. Her shortness of breath was improving though she was still on 2 L of oxygen. Review of systems otherwise negative. She has remained hemodynamically stable. Objective Data Objective Data Vital Signs: Vital Signs Temp Pulse Resp BP Pulse Ox 98.2 F 68 18 140/76 H 94 08/27/21 08:53 08/27/21 08:53 08/27/21 08:53 08/27/21 08:53 08/27/21 09:00 Oxygen Flow Rate (L/min) 3 Oxygen Delivery Method Nasal Cannula Weight: 172 lb 4 oz Body Mass Index (BMI) 26.9 Intake & Output: Intake and Output for Last 24 Hours 08/25/21 08/26/21 08/27/21 23:59 23:59 23:59 Intake Total 305 / 305 281 / 281 Balance 305 / 305 281 / 281 Medical Nutrition Assessment Dietitian: Malnutrition Criteria Met Start: 08/26/21 17:34 Freq: Status: Active Protocol: Document 08/26/21 17:35 RMA (Rec: 08/26/21 17:35 RMA [id number]) Nutrition Malnutrition Evidence of Malnutrition Exists Yes Malnutrition (severe): Acute Illness/Injury Evidenced By Suboptimal Energy Intake ( Severe),Weight Loss (Severe) Clinical Problem Acute Disease or Injury Related Malnutrition Etiology Severe protein/calorie malnutrition in the context of acute illness related to decreased appetite Signs/Symptoms as evidenced by 3% wt loss x past 1 week and PO meeting less than 50% estimated nutrition needs x past 7-10 days. Status Active Problem Recommendation Dietitian Recommendations/Changes Will liberalize diet from cardiac/gluten-free to Regular /no added salt/gluten-free to help optimize intake at meals. Will add 240ml ensure clear TID w/ meals as tolerated. Lab / Micro Data Result Diagrams: 08/27/21 06:30 08/27/21 06:30 Labs: Laboratory Results - last 24 hr 08/26/21 11:38: Magnesium 2.5, Ferritin 615 H, Lactate Dehydrogenase 401 H, C- React Prot Ext Range 26.00 H 08/26/21 11:38: B-Natriuretic Peptide 16.0 08/26/21 16:10: Procalcitonin < 0.04 08/27/21 06:30: WBC 5.0, RBC 4.83, Hgb 14.1, Hct 42.2, MCV 87.4, MCH 29.2, MCHC 33.4, RDW Std Deviation 40.5, RDW Coeff of Ish 12.6, Plt Count 357, MPV 9.9, Immature Gran % (Auto) 0.800, Neut % (Auto) 67.3, Lymph % (Auto) 19.3, [place] % (Auto) 12.4 H, Eos % (Auto) 0.0, Baso % (Auto) 0.2, Absolute Neuts (auto) 3.4, Absolute Lymphs (auto) 0.96, Nucleated RBC % 0, Reactive Lymphocytes RARE 08/27/21 06:30: Sodium 137, Potassium 3.9, Chloride 102, Carbon Dioxide 26.0, Anion Gap 9, BUN 11, Creatinine 0.60, Estim Creat Clear Calc 104.24, Est GFR (M DRD) Af Amer 134, Est GFR (MDRD) Non-Af 111, BUN/Creatinine Ratio 18.3, Glucose 100, Calcium 8.9, Total Bilirubin 0.60, AST 37, ALT 52, Alkaline Phosphatase 88, Total Protein 7.5, Albumin 3.0 L, Globulin 4.5 H, Albumin/Globulin Ratio 0.7 L Micro: Microbiology 08/26/21 22:05 Urine, Clean Catch Legionella Antigen - Final 08/26/21 22:05 Urine, Clean Catch Streptococcus pneumoniae Antigen (M - Final 08/26/21 19:00 Mucosa - Nose Respiratory Panel (PCR) - Final Physical Exam Const alert, oriented x3 and no apparent distress Exam Limitations: no limitations HEENT head/scalp atraumatic and moist oral mucous membranes Head and Scalp: normocephalic Eyes PERRL, EOMs intact bilaterally and conjunctivae normal Neck no lymphadenopathy Resp Resp Narrative: diminished breath sounds bibasally, no wheezes or crackles. On 2L of oxygen. GI normal to inspection, nondistended, normoactive bowel sounds, soft to palpation, non-tender and non-distended Extremity normal to inspection, full ROM and no clubbing, cyanosis or edema Peripheral Pulses: Yes pulses 2+ throughout Skin no rashes or lesions noted Neuro oriented x3 and moves all extremities Sensorium / Orientation: awake Psych affect normal Assessment & Plan Assessment/Plan (1) COVID-19: (2) Hypoxia: PLAN: #Acute hypoxic respiratory insufficiency due to COVID 19 infection * patient on 2L of oxygen. * on remdesivir and decadron * titrate oxygen to maintain sats >90% * breathing treatment with bronchodilators * #Hypertension: on lisinopril #Asthma: not in exacerbation. #Hypothyroidism: currently takes over the counter meds. To folow up with her PCP to consider initiation of synthroid. DVT prophylaxis: lovenox. Code status: full code Charges/Coding Visit Charges Inpatient E&M: 09885 Subs Hosp L2
[2021-08-27] MEDS: MELATONIN 3 MG TABLET PO (21:13)
[2021-08-28] VITALS (10 sets, daily range): BP systolic 109–132; BP diastolic 67–83; PULSE 55–68; RESP 18; TEMP 36.3–37.3; O2SAT 94–97
[2021-08-28] MEDS: Acetaminophen 325 MG Tablet 650 MG PO (02:18)
[2021-08-28 06:56] LABS: Absolute Lymphocyte Count 1.69 X10^3/uL (0.83-4.51); Absolute Neutrophil Count 4.9 X10^3/uL (2.0-7.7); Basophil# 0.01 X10^3/uL; Basophil% 0.1 % (0-1); Eosinophil# 0.01 X10^3/uL; Eosinophils% 0.1 % (0-5); Hematocrit 39.9 % (37-47); Hemoglobin 13.5 g/dL (12.0-15.0); Lymphocyte # 1.69 X10^3/ul (0.83-4.51); Lymphocyte % 22.6 % (19-41); Mean Corp Hgb Conc 33.8 g/dL (32-36); Mean Corpuscular Hgb 29.3 pg (27.0-32.0); Mean Corpuscular Volume 86.6 fL (81-99); Monocyte# 0.82 X10^3/uL; NRBC Flagged by Analyzer 0 % (0-5); Neutrophil % 65.7 % (47-70); Platelet Count 372 K/mm3 (150-450); RBC Distribution Width CV 12.5 % (11.6-14.6); RBC Distribution Width SD 39.8 fl (35.1-43.9); Red Blood Count 4.61 M/mm3 (4.2-5.4); White Blood Count 7.5 K/mm3 (4.4-11.0)
[2021-08-28 07:23] LABS: Anion Gap 8 (5-15); BUN 17 mg/dL (7-18); BUN/Creat Ratio 22.8 RATIO (10-20); Calcium,Total 8.7 mg/dL (8.5-10.1); Chloride 104 mmol/L (98-107); Creatinine, Serum 0.75 mg/dL (0.55-1.02); EST Glomerular Filtration Rate 86 mL/min (>60); Est Glom Filt Rate - Afr Amer 104 mL/min (>60); Estimated Creatinine Clearance 83.39 ml/min; Glucose 95 mg/dL (74-106); Potassium 3.9 mmol/L (3.5-5.1); Sodium Level 137 mmol/L (136-145)
[2021-08-28] MEDS: dexAMETHasone 4 MG/ML Vial 6 MG IV (10:37)
[2021-08-28] MEDS: 0.9% Saline Lock 10 ML Syringe IV (10:38)
[2021-08-28] MEDS: Lisinopril 10 MG Tablet PO (10:38)
[2021-08-28] MEDS: Enoxaparin 30 MG/0.3 ML Syringe SC ×2 (10:38→20:43)
[2021-08-28] MEDS: Famotidine 20 MG Tablet PO ×2 (10:38→20:43)
--- NOTE | 2021-08-28 14:27 | PN.HOSP_ITS ---
Subjective Subjective Patient seen and examined. She feels a bit better today, but still feels quite weak and worn out. She is still on 2L of oxygen. Review of systems is otherwise negative. Objective Data Objective Data Vital Signs: Vital Signs Temp Pulse Resp BP Pulse Ox 97.3 F L 56 L 18 111/67 97 08/28/21 09:00 08/28/21 09:00 08/28/21 09:00 08/28/21 09:00 08/28/21 09:00 Oxygen Flow Rate (L/min) 3 Oxygen Delivery Method Nasal Cannula Weight: 171 lb 8.314 oz Body Mass Index (BMI) 26.9 Intake & Output: Intake and Output for Last 24 Hours 08/26/21 08/27/21 08/28/21 23:59 23:59 23:59 Intake Total 305 / 305 281 / 281 Balance 305 / 305 281 / 281 Medical Nutrition Assessment Dietitian: Malnutrition Criteria Met Start: 08/26/21 17:34 Freq: Status: Active Protocol: Document 08/26/21 17:35 RMA (Rec: 08/26/21 17:35 RMA [id number]) Nutrition Malnutrition Evidence of Malnutrition Exists Yes Malnutrition (severe): Acute Illness/Injury Evidenced By Suboptimal Energy Intake ( Severe),Weight Loss (Severe) Clinical Problem Acute Disease or Injury Related Malnutrition Etiology Severe protein/calorie malnutrition in the context of acute illness related to decreased appetite Signs/Symptoms as evidenced by 3% wt loss x past 1 week and PO meeting less than 50% estimated nutrition needs x past 7-10 days. Status Active Problem Recommendation Dietitian Recommendations/Changes Will liberalize diet from cardiac/gluten-free to Regular /no added salt/gluten-free to help optimize intake at meals. Will add 240ml ensure clear TID w/ meals as tolerated. Lab / Micro Data Result Diagrams: 08/28/21 06:49 08/28/21 06:49 Labs: Laboratory Results - last 24 hr 08/28/21 06:49: WBC 7.5, RBC 4.61, Hgb 13.5, Hct 39.9, MCV 86.6, MCH 29.3, MCHC 33.8, RDW Std Deviation 39.8, RDW Coeff of Ish 12.5, Plt Count 372, MPV 9.0, Immature Gran % (Auto) 0.500, Neut % (Auto) 65.7, Lymph % (Auto) 22.6, [place] % (Auto) 11.0 H, Eos % (Auto) 0.1, Baso % (Auto) 0.1, Absolute Neuts (auto) 4.9, Absolute Lymphs (auto) 1.69, Nucleated RBC % 0 08/28/21 06:49: Sodium 137, Potassium 3.9, Chloride 104, Carbon Dioxide 25.0, Anion Gap 8, BUN 17, Creatinine 0.75, Estim Creat Clear Calc 83.39, Est GFR (MDRD) Af Amer 104, Est GFR (MDRD) Non-Af 86, BUN/Creatinine Ratio 22.8 H, Glucose 95, Calcium 8.7 Micro: Microbiology 08/28/21 05:30 Sputum, Expectorated/Coughed Gram Stain - Final 08/26/21 12:00 Blood Culture (Wb) - Right Wrist Blood Culture - Preliminary No growth in 48 hours. 08/26/21 11:38 Blood Culture (Wb) - Anticubital Left Blood Culture - Preliminary No growth in 48 hours. 08/26/21 22:05 Urine, Clean Catch Legionella Antigen - Final 08/26/21 22:05 Urine, Clean Catch Streptococcus pneumoniae Antigen (M - Final 08/26/21 19:00 Mucosa - Nose Respiratory Panel (PCR) - Final Physical Exam Const alert, oriented x3 and no apparent distress Exam Limitations: no limitations HEENT head/scalp atraumatic and moist oral mucous membranes Head and Scalp: normocephalic Eyes PERRL, EOMs intact bilaterally and conjunctivae normal Neck no lymphadenopathy Resp Resp Narrative: diminished breath sounds bibasally, no wheezes or crackles. Remains on 2L of oxygen. Cardio regular rate, regular rhythm, S1 normal heart sound, S2 normal heart sound and no murmurs GI normal to inspection, nondistended, normoactive bowel sounds, soft to palpation, non-tender and non-distended Extremity normal to inspection, full ROM and no clubbing, cyanosis or edema Peripheral Pulses: Yes pulses 2+ throughout Skin no rashes or lesions noted Neuro oriented x3 and moves all extremities Sensorium / Orientation: awake and alert Psych affect normal Assessment & Plan Assessment/Plan (1) COVID-19: (2) Hypoxia: PLAN: #Acute hypoxic respiratory insufficiency due to COVID 19 infection * patient remains on 2L of oxygen. * on remdesivir and decadron * titrate oxygen to maintain sats >90% * breathing treatment with bronchodilators * #Hypertension: on lisinopril #Asthma: not in exacerbation. n breathing treatment with bronchodilators. #Hypothyroidism: currently takes over the counter supplements. To follow up with her PCP to consider initiation of synthroid. DVT prophylaxis: lovenox. Code status: full code Disposition; for likely DC tomorrow Charges/Coding Visit Charges Inpatient E&M: 30956 Subs Hosp L2
[2021-08-28] MEDS: MELATONIN 3 MG TABLET PO (20:44)
[2021-08-28] MEDS: Psyllium 1 PACKET PO (20:44)
[2021-08-29] VITALS (8 sets, daily range): BP systolic 118–141; BP diastolic 66–80; PULSE 53–85; RESP 18–20; TEMP 36.6–37.1; O2SAT 86–95
[2021-08-29] MEDS: Albuterol 2.5 MG/3 ML VIAL.NEB. INHALATION (07:45)
[2021-08-29 08:02] LABS: Absolute Lymphocyte Count 1.66 X10^3/uL (0.83-4.51); Absolute Neutrophil Count 5.5 X10^3/uL (2.0-7.7); Basophil# 0.03 X10^3/uL; Basophil% 0.4 % (0-1); Eosinophil# 0.02 X10^3/uL; Eosinophils% 0.2 % (0-5); Hematocrit 40.9 % (37-47); Hemoglobin 13.8 g/dL (12.0-15.0); Lymphocyte # 1.66 X10^3/ul (0.83-4.51); Lymphocyte % 20.3 % (19-41); Mean Corp Hgb Conc 33.7 g/dL (32-36); Mean Corpuscular Hgb 29.4 pg (27.0-32.0); Mean Platelet Vol. 9.1 fl (6.2-12.0); Monocyte# 0.85 X10^3/uL; Monocyte% 10.4 % (0-10); NRBC Flagged by Analyzer 0 % (0-5); Neutrophil # 5.53 X10^3/uL (2.7-7.7); Neutrophil % 67.5 % (47-70); Platelet Count 387 K/mm3 (150-450); RBC Distribution Width CV 12.5 % (11.6-14.6); White Blood Count 8.2 K/mm3 (4.4-11.0)
[2021-08-29 08:32] LABS: Anion Gap 7 (5-15); BUN 15 mg/dL (7-18); BUN/Creat Ratio 22.8 RATIO (10-20); Calcium,Total 8.7 mg/dL (8.5-10.1); Chloride 102 mmol/L (98-107); Creatinine, Serum 0.66 mg/dL (0.55-1.02); EST Glomerular Filtration Rate 99 mL/min (>60); Est Glom Filt Rate - Afr Amer 120 mL/min (>60); Estimated Creatinine Clearance 94.76 ml/min; Glucose 88 mg/dL (74-106); Potassium 3.9 mmol/L (3.5-5.1); Sodium Level 136 mmol/L (136-145)
[2021-08-29] MEDS: Enoxaparin 30 MG/0.3 ML Syringe SC (10:06)
[2021-08-29] MEDS: dexAMETHasone 4 MG/ML Vial 6 MG IV (10:06)
[2021-08-29] MEDS: Lisinopril 10 MG Tablet PO (10:06)
[2021-08-29] MEDS: Famotidine 20 MG Tablet PO (10:06)
[2021-08-29] MEDS: 0.9% Saline Lock 10 ML Syringe IV (10:07)
[2021-08-29] MEDS: Ondansetron 4 MG/2 ML Vial IV (10:10)
--- NOTE | 2021-08-29 11:11 | PCM.DC.SUM ---
Providers Date of Admission: 08/26/21 Primary Care Physician: Dr. Jerry Lund MD Reason For Visit: COVID / HYPOXIA Diagnosis Discharge Diagnosis (1) COVID-19: Status: Acute Code(s): U07.1 - COVID-19 (2) Hypoxia: Status: Acute Code(s): R09.02 - Hypoxemia Medications at Discharge Home Medications albuterol sulfate [ProAir HFA] 2 puff INHALATION Q6H PRN 01/22/18 Cardio-Plus 1 cap PO/SL DAILY 08/26/21 Cyruta 1 tab PO/SL DAILY 08/26/21 Thyrostim 1 cap PO/SL DAILY 08/26/21 ascorbic acid (vitamin C) 1 g PO DAILY 08/26/21 cholecalciferol (vitamin D3) 50 - 100 mcg PO DAILY 08/26/21 codeine-guaifenesin 10 ml PO QHS 08/26/21 guaifenesin [Mucinex] 600 mg PO DAILY 08/26/21 ibuprofen 200 - 400 mg PO Q6H PRN 08/26/21 lisinopril 10 mg PO DAILY 08/26/21 ondansetron HCl 4 mg PO Q4H PRN 08/26/21 dexamethasone 6 mg PO DAILY #7 tab 08/29/21 Hospital Course Operations None Procedures None Summary of Care Provided Minutes Spent on Discharge: 45 Hospital Course: Patient is a 56-year-old female with a past medical history which includes asthma, hypertension and hypothyroidism. Patient was admitted through the ED on 08/26/2021 with a complaint of weakness and low-grade fever as well as chills and sore throat, shortness of breath and cough as well as body aches, nausea without emesis and diarrhea. She had tested positive for Covid about 9 days prior to admission and the symptoms started about 11 days before admission. D-dimer was mildly elevated at 1.24. Chest x-ray showed evidence of bilateral multilobar pneumonia and CT was negative for PE. She was admitted and managed for acute hypoxic respiratory insufficiency due to COVID-19 pneumonia. Patient required 2 L of oxygen. Symptoms gradually improved and though she did feel a bit weak, she felt better than on admission. She remained stable and was discharged home on 08/29/2021. She was discharged with a prescription for p.o. Decadron 10 mg daily completed 10-day course. She also discharged on 2.5 mg of Eliquis twice daily for 2 weeks on account of elevated D-dimer. She is follow-up with a primary care doctor in 1 to 2 weeks. His symptoms started around approximately August 17, 2021 so she should remain in isolation till September 06, 2021 to complete a 20-day self-isolation. Ambulatory pulse oximetry showed that patient required 2L of oxygen, so she was discharged home on 2L of oxygen. Patient was seen and examined prior to discharge. She felt better than when she came in. Review of systems otherwise negative. Labs and vitals reviewed. Home medication reviewed on consult. Physical Exam Const alert, oriented x3 and no apparent distress General Appearance: cooperative, comfortable and well kempt Orientation / Consciousness: awake Exam Limitations: no limitations HEENT normocephalic, head/scalp atraumatic and moist oral mucous membranes Eyes PERRL, EOMs intact bilaterally and conjunctivae normal Neck no lymphadenopathy Resp Resp Narrative: diminished breath sounds bibasally, no wheezes or crackles. Remains on 2L of oxygen. Cardio regular rate, regular rhythm, S1 normal heart sound, S2 normal heart sound and no murmurs GI normal to inspection, nondistended, normoactive bowel sounds, soft to palpation, non-tender and non-distended Extremity normal to inspection, full ROM and no clubbing, cyanosis or edema Skin no rashes or lesions noted Neuro oriented x3 and moves all extremities Sensorium / Orientation: awake and alert Psych affect normal Medical Records Data Medical Nutrition Assessment Dietitian: Malnutrition Criteria Met Start: 08/26/21 17:34 Freq: Status: Active Protocol: Document 08/26/21 17:35 RMA (Rec: 08/26/21 17:35 RMA [id number]) Nutrition Malnutrition Evidence of Malnutrition Exists Yes Malnutrition (severe): Acute Illness/Injury Evidenced By Suboptimal Energy Intake ( Severe),Weight Loss (Severe) Clinical Problem Acute Disease or Injury Related Malnutrition Etiology Severe protein/calorie malnutrition in the context of acute illness related to decreased appetite Signs/Symptoms as evidenced by 3% wt loss x past 1 week and PO meeting less than 50% estimated nutrition needs x past 7-10 days. Status Active Problem Recommendation Dietitian Recommendations/Changes Will liberalize diet from cardiac/gluten-free to Regular /no added salt/gluten-free to help optimize intake at meals. Will add 240ml ensure clear TID w/ meals as tolerated. Weight / BMI Weight Weight: 170 lb 10.205 oz Body Mass Index (BMI) 26.9 ABG / Lab / Microbiology Data Result Diagrams: 08/29/21 07:46 08/29/21 07:46 Laboratory: Laboratory Results - last 24 hr 08/29/21 07:46: WBC 8.2, RBC 4.70, Hgb 13.8, Hct 40.9, MCV 87.0, MCH 29.4, MCHC 33.7, RDW Std Deviation 40.0, RDW Coeff of Ish 12.5, Plt Count 387, MPV 9.1, Immature Gran % (Auto) 1.200 H, Neut % (Auto) 67.5, Lymph % (Auto) 20.3, [place] % (Auto) 10.4 H, Eos % (Auto) 0.2, Baso % (Auto) 0.4, Absolute Neuts (auto) 5.5, Absolute Lymphs (auto) 1.66, Nucleated RBC % 0 08/29/21 07:46: Sodium 136, Potassium 3.9, Chloride 102, Carbon Dioxide 27.0, Anion Gap 7, BUN 15, Creatinine 0.66, Estim Creat Clear Calc 94.76, Est GFR (MDRD) Af Amer 120, Est GFR (MDRD) Non-Af 99, BUN/Creatinine Ratio 22.8 H, Glucose 88, Calcium 8.7 Microbiology: Microbiology 08/28/21 05:30 Sputum, Expectorated/Coughed Gram Stain - Final 08/26/21 12:00 Blood Culture (Wb) - Right Wrist Blood Culture - Preliminary No growth in 48 hours. 08/26/21 11:38 Blood Culture (Wb) - Anticubital Left Blood Culture - Preliminary No growth in 48 hours. 08/26/21 22:05 Urine, Clean Catch Legionella Antigen - Final 08/26/21 22:05 Urine, Clean Catch Streptococcus pneumoniae Antigen (M - Final 08/26/21 19:00 Mucosa - Nose Respiratory Panel (PCR) - Final D/C Instructions Discharge Diet: Low fat / Low cholesterol Discharge Activity: Return to Normal Activity Call your doctor if you observe: Fever of 101 or Higher, Shortness of breath, Dizziness, Swelling in the ankles, Chest pain and Increased palpitations (irregular heartbeat) Meaningful Use Info Meaningful Use Diagnoses (Choose all that apply): None applicable Discharge Plan Admission Admit Date/Time: 08/26/21 14:18 Primary Reason for Your Visit: covid 19 pneumonia Attending Provider: Saira Melo Primary Care Provider: Jerry Lund Instructions Patient Instructions: Coronavirus Disease 2019 (COVID-19): Overview, Coronavirus Disease 2019 (COVID-19): Caring for Yourself or Others Additional Instructions / Restrictions: remain in self isolation till September 06, 2021. Discharge Orders/Prescriptions Prescriptions: New dexamethasone 6 mg tablet 6 mg PO DAILY Qty: 7 RF: 0 Continued albuterol sulfate [ProAir HFA] 1 PUFF inhaler 2 puff inhalation Q6H PRN (Reason: Shortness Of Breath Or Wheezing) RF: 0 ascorbic acid (vitamin C) 1,000 mg Tablet 1 g PO DAILY RF: 0 ondansetron HCl 4 mg tablet 4 mg PO Q4H PRN (Reason: Nausea) RF: 0 lisinopril 10 mg tablet 10 mg PO DAILY RF: 0 ibuprofen 200 mg Tablet 200 - 400 mg PO Q6H PRN (Reason: PAIN AND FEVER) RF: 0 codeine-guaifenesin 10-100 mg/5 mL Liquid 10 ml PO QHS RF: 0 cholecalciferol (vitamin D3) 50 mcg (2,000 unit) Capsule 50 - 100 mcg PO DAILY RF: 0 guaifenesin [Mucinex] 600 mg Tablet Extended Release 12hr 600 mg PO DAILY RF: 0 Cardio-Plus 1 cap PO/SL DAILY RF: 0 Cyruta 1 tab PO/SL DAILY RF: 0 Thyrostim 1 cap PO/SL DAILY RF: 0 Referrals / Follow Up: Jerry Lund MD [Primary Care Provider] - Within 2 Weeks Disposition Disposition (needs filled in before D/C Order can be placed): Home, Self Care Charges/Coding Visit Charges Inpatient E&M: 51291 Disch Hosp
--- NOTE | 2021-08-31 15:55 | CASEMGMT ---
PEMA PRADO Discharge Follow Up Phone Call: ANGIEE: 6 Strata:2 Call Date: 08/31/21 Discharge Date: 08/29/21 Time of Call:1555 Duration:<1 min Admitting Dx: COVID/hypoxia PEMA PRADO attempted to complete follow up phone call after recent hospitalization, no answer on unidentified voicemail. No message left.
== END 2021-08-29 19:21 | disposition home or self-care (01) | DRG 177 ==
LOC: ED 14:09 → MS3 14:35
PROVIDERS: Admitting Provider Family Medicine; Emergency Provider Emergency Medicine; PCP Family Medicine; Visit Provider Student in an Organized Health Care Education/Training Program
DX: U07.1 COVID-19 (principal); J12.82 Pneumonia due to coronavirus disease 2019; J45.909 Unspecified asthma, uncomplicated; I10 Essential (primary) hypertension; E03.9 Hypothyroidism, unspecified; R09.02 Hypoxemia; Z79.899 Other long term (current) drug therapy; Z28.3 Underimmunization status
CPT/HCPCS: 36415; 71045; 71275; 80048; 80053; 82728; 83605; 83615; 83735; 83880; 84145; 85025; 85379; 86140; 87040; 87070; 87205; 87449; 87633; 94640; 94762; 99251; 99285; Q9967; A4216; G0463; J2405

== ENCOUNTER → 2021-09-11 09:58 | Outpatient (CLI) | payer OTHER, SELFPAY | PROVIDERS: PCP Family Medicine; Referring Provider Family Medicine; Visit Provider Family Medicine | DX: N39.0 Urinary tract infection, site not specified (principal) | CPT/HCPCS: 87086; 87088 ==

== ENCOUNTER 2022-01-22 15:28 | Outpatient (CLI) | payer OTHER, BC, SELFPAY ==
[2022-01-22 15:33] LABS: Bacteria 0 SEEN /hpf (None Seen); Mucous, Urine 0 SEEN /hpf (<or=2+); Red Blood Cells-Urine 0 SEEN /hpf (0-5); Squamous Epithelial Cells - UA 0 SEEN /hpf (5-10); White Blood Cells 0 SEEN /hpf (0-5)
[2022-01-22 17:34] LABS: Absolute Lymphocyte Count 2.05 X10^3/uL (0.83-4.51); Absolute Neutrophil Count 2.5 X10^3/uL (2.0-7.7); Basophil# 0.04 X10^3/uL; Basophil% 0.8 % (0-1); Color, Urine Yellow (Yellow); Eosinophil# 0.08 X10^3/uL; Eosinophils% 1.5 % (0-5); Glucose, Dipstick Normal (Normal); Hematocrit 43.1 % (37-47); Ketone-Dipstick Negative (Negative); Leukocyte Esterase-Dipstick Negative /ul (Negative); Lymphocyte # 2.05 X10^3/ul (0.83-4.51); Mean Corp Hgb Conc 32.5 g/dL (32-36); Mean Corpuscular Hgb 28.8 pg (27.0-32.0); Mean Corpuscular Volume 88.7 fL (81-99); Mean Platelet Vol. 11.1 fl (6.2-12.0); Monocyte# 0.55 X10^3/uL; Monocyte% 10.5 % (0-10); NRBC Flagged by Analyzer 0 % (0-5); Neutrophil # 2.52 X10^3/uL (2.7-7.7); Nitrite-Dipstick Negative (Negative); Occult Blood-Urine Negative /ul (Negative); Platelet Count 261 K/mm3 (150-450); Protein-Dipstick Negative (Negative); RBC Distribution Width CV 13.3 % (11.6-14.6); RBC Distribution Width SD 43.7 fl (35.1-43.9); Red Blood Count 4.86 M/mm3 (4.2-5.4); Urine Bilirubin Dipstick Negative (Negative); Urine Clarity Clear (Clear); Urine Urobilinogen Normal (Normal); Urine pH 6.5 (5.0 - 8.0); White Blood Count 5.3 K/mm3 (4.4-11.0)
[2022-01-22 17:51] LABS: Vitamin D,25 Hydroxy 32.9 ng/mL
[2022-01-22 17:57] LABS: ALB/GLOB Ratio 1.2 RATIO (0.9-2.4); AST(SGOT) 21 U/L (15-37); Alanine Aminotransfer ALT/SGPT 32 U/L (13-56); Alkaline Phosphatase 70 U/L (45-117); Anion Gap 6 (5-15); BUN 14 mg/dL (7-18); BUN/Creat Ratio 19.4 RATIO (10-20); Calcium,Total 9.6 mg/dL (8.5-10.1); Chloride 106 mmol/L (98-107); Cholesterol 234 mg/dL (200); Creatinine, Serum 0.72 mg/dL (0.55-1.02); EST Glomerular Filtration Rate 89 mL/min (>60); Est Glom Filt Rate - Afr Amer 108 mL/min (>60); Globulin 3.2 g/dL (2.2-4.2); Glucose 86 mg/dL (74-106); High Density Lipoprotein 66 mg/dL; Potassium 3.7 mmol/L (3.5-5.1); Protein, Total 7.2 g/dL (6.4-8.2); Sodium Level 138 mmol/L (136-145); T4 Free Direct 0.74 ng/dL (0.76-1.46); Thyroid Stim Hormone (TSH) 8.53 uIU/mL (0.358-3.74); Triglycerides 135 mg/dL; Very Low Density Lipoprotein 27 mg/dL (5-40)
== END 2022-01-22 23:59 | disposition home or self-care (01) ==
LOC: MFPLAB 15:29
PROVIDERS: PCP Family Medicine; Referring Provider Family Medicine; Visit Provider Family Medicine
DX: I10 Essential (primary) hypertension (principal); E55.9 Vitamin D deficiency, unspecified; E03.9 Hypothyroidism, unspecified; E78.5 Hyperlipidemia, unspecified
CPT/HCPCS: 36415; 80053; 80061; 81001; 82306; 84439; 84443; 85025

== ENCOUNTER 2022-04-20 05:53 | Day surgery (SDC) | payer OTHER, BC, SELFPAY ==
[2022-04-20] VITALS (7 sets, daily range): BP systolic 100–142; BP diastolic 62–84; PULSE 57–76; RESP 14–18; TEMP 36.1; O2SAT 98–100; BMI 28.3
--- NOTE | 2022-04-20 06:09 | HP.PCM_ITS ---
History and Physical Date of Admission: 04/20/22 Visit Reasons: SCREEN FOR COLON CANCER Chief Complaint: sob Allergies latex Allergy (Mild, Verified 02/22/22 14:40) Rash gluten Adverse Reaction (Verified 02/22/22 14:40) Diarrhea Medications albuterol sulfate [ProAir HFA] 2 puff INHALATION Q6H PRN 01/22/18 [History Confirmed 02/22/22] Cardio-Plus 1 cap PO/SL DAILY 08/26/21 [History Confirmed 02/22/22] Cyruta 1 tab PO/SL DAILY 08/26/21 [History Confirmed 02/22/22] Thyrostim 1 cap PO/SL DAILY 08/26/21 [History Confirmed 02/22/22] ascorbic acid (vitamin C) 1 g PO DAILY 08/26/21 [History Confirmed 02/22/22] cholecalciferol (vitamin D3) 50 - 100 mcg PO DAILY 08/26/21 [History Confirmed 02/22/22] ibuprofen 200 - 400 mg PO Q6H PRN 08/26/21 [History Confirmed 02/22/22] lisinopril 10 mg PO DAILY 08/26/21 [History Confirmed 02/22/22] levothyroxine 50 mcg tablet 50 mcg PO DAILY tab 02/22/22 [History Confirmed 02/22/22] PFSH Medical History Asthma COVID-19 Hypertension Hypothyroid Hypoxia Surgical History H/O breast biopsy H/O: hysterectomy S/P cholecystectomy S/P exploratory laparotomy S/P foot surgery Family History Mother Brain aneurysm 76. Social History household members: spouse Smoking Status: Never smoker alcohol intake: never substance use type: does not use HPI HPI HPI: CARLOS MALDONADO, is a 56 F who presents to the office today for surgical discussion regarding a screening colonoscopy. The patient is referred by Dr Jerry Lund and a written copy of my surgical consult recommendations will be returned to him. The patient states that she has a history of chronic diarrhea secondary to IBS?D. She has trouble couple days of the month. She states that she has an intolerance to gluten. She has been on a gluten-free diet for 7 years. The patient notes less joint pain and resolution of previous headaches. The patient has had chronic diarrhea. Her previous colonoscopy was 10 years ago. No acute findings that time. Most pertinent recent history is August 2021 she did get Covid-19. She required significant dosing of prednisone. She states she did not gain weight at that time but since that time being off the prednisone she has had about a 15 pound weight gain. She does not think that she has any leg swelling. She notes no chest pain and her previous shortness of breath is resolved. She states that she has been told in the past that she has some autoimmune type issues. She did not receive the Covid vaccination prior to her infection nor since. She intermittently will have left mid abdominal pain but that is a chronic issue. She was told in the past that that could represent bouts of diverticulitis. She has known diverticulosis. Past history is also notable for a grandfather who had colon cancer. ROS General General: Yes weight change; No appetite, fatigue, colon cancer, breast cancer or weakness HEENT HEENT: No difficulty swallowing, eye injury, eye surgery, swollen glands or hoarseness Endo Endocrine: Yes thyroid disease; No diabetes mellitus, thyroid cancer, Hair loss, heat intolerance or cold intolerance Skin Skin: No rash or changing moles Breast Breast: No left breast lump, right breast lump, nipple discharge, breast pain, abnormal mammogram, abnormal US or breast enlargement Musc Musculoskeletal: No back problems, arthritis, rheumatoid arthritis, gout or joint pain Cardio Cardiovascular: Yes high blood pressure; No murmur, pacemaker, heart disease, atrial fibrillation, heart attack, heart stent, palpitations, shortness of breat with exertion or chest pain Psych Psychiatric: No depression, anxiety or hearing voices Resp Respiratory: No shortness of breath, No sleep apnea, No cough, No COPD, Yes asthma, No emphysema and No wheezing Gastro Gastrointestinal: Yes abdominal pain, No nausea or vomiting, Yes diarrhea, No constipation, No blood in stool, No acid reflux, No hemorrhoids, No ulcers, Yes gallbladder problem and No black,tarry stools Dayron Hematologic: No blood thinners, No blood disorders, No bleeding, No anemia and No blood clots Neuro Neurologic: No system reviewed and no additional complaints, except as documented, No as per HPI, No abnormal gait, No abnormal hearing, No abnormal movements, No abnormal speech, No behavioral changes, No burning sensations, No confusion, No convulsions, No disequilibrium, No dizziness, No localized weakness, No frequent falls, No headache(s), No lack of coordination, No loss of vision, No memory loss, No numbness, No other visual disturbances, No radicular pain, No restless legs, No sensory deficit, No syncope, No tingling, No tremor(s), No weakness and No other Exam Const General: cooperative, healthy appearing, comfortable and no acute distress [facility] Head: normal to inspection Eyes General: appearance normal, both eyes and all related structures Neck Neck: normal visual inspection Resp Effort & Inspection: normal respiratory effort Auscultation: clear to auscultation bilaterally Cardio Rate: regular rate Rhythm: regular rhythm GI Palpation: soft and no hepatosplenomegaly Other: Overweight, difficult to palpate internal organs Musc Cervical Spine: normal cervical lordosis Neuro General: patient alert, patient awake and patient oriented x3 Assessment and Plan Assessment and Plan (1) Screening for intestinal cancer: Status: Acute (2) Chronic diarrhea: Status: Chronic Plan - Dr. Blayne Henriquez MD: The patient has been on a gluten-free diet for 7 years with improvement multiple symptoms. At this point I do not believe that a upper endoscopy with biopsy w ill alter her treatment program. For 7 years she has been tolerating that diet well with significant symptom improvement. At this point I do not see that a duodenal biopsy would alter that recommendation. I do recommend to the patient a screening colonoscopy with possible biopsy or polypectomy as indicated. She has had chronic diarrhea. She has intermittent left mid abdominal pain. She has known diverticulosis. Grandfather with a history of colon cancer. I would consider possible random colonic biopsies at the setting and attempt to try to assist with the diarrhea diagnosis. I did briefly discuss Covid-19 with her. She remains very hesitant about whether she should receive the Covid-19 vaccine. I suggested to her that perhaps with her history of suspected autoimmune issues that her best course of action might be to consult an infectious disease specialist. She has had an opportunity to ask and have questions answered. I appreciate the opportunity of assisting with the surgical care. We will schedule procedure at her discretion. Copy: Dr Jerry Henriquez M.D., F.A.C.S I have re-examined the patient. There are no clinical changes since date of exam.
[2022-04-20] MEDS: Lactated Ringers 1,000 ML 15 ML IV (06:29)
--- NOTE | 2022-04-20 07:00 | COLBX_PTH ---
PATIENT: CARLOS MALDONADO LOC: EN U#:[id number] AGE/SX: 57/F ROOM: RE04/20/[address]: Dr. Blayne Henriquez MD : 1965 BED: DIS: 04/20/2022 SPEC #: [id number] RECD: 04/20/22 09:38 STATUS: ISRAEL LOZANO #: [id number] ESTHELA: 04/20/22 07:[address]: Blayne Henriquez DEPT: SURGICAL PATHOLOGY RECD BY: Anali Hoover ENTERED: 04/20/22 10:37 SP TYPE: COLON BX OTHR DR: Dr. Jerry Lund MD Tissues: A - Ascending colon B - COLON BIOPSY Procedures: Surgery Specimen Level IV HEADER OPERATION: Colonoscopy (MAC) with biopsies PRE-OP DIAGNOSIS: Screening, chronic diarrhea TISSUE SUBMITTED: A ? Ascending colon polyp biopsy, B ? Random colon biopsies MICROSCOPIC DIAGNOSIS A. Ascending colon polyp, biopsy: Tubular adenoma. B. Colon, random biopsy: No pathologic change. AM:rosario 04/21/2022 MICROSCOPIC DESCRIPTION Slides are reviewed. GROSS DESCRIPTION A - Received in fixative is one container labeled with the patient's name and designated ascending colon polyp biopsy. The specimen consists of one irregular fragment of light paz soft tissue that measures 0.5 x 0.3 x 0.1 cm. The specimen is totally submitted in one cassette. B - Received in fixative is one container labeled with the patient's name and designated random colon biopsy. The specimen consists of multiple irregular fragments of light paz soft tissue that in aggregate measure 1.5 x 1 x 0.1 cm. The specimen is totally submitted in one cassette. / AM:rosario 04/20/2022 TC:5 CPT: 93573 x2
--- NOTE | 2022-04-20 07:24 | OP.CCLET_ITS ---
04/20/2022 Jerry Lund [address] [place] [address] Re : Colonoscopy procedure for [facility] Dear Dr. Lund This procedure was performed on Wednesday, April 20, 2022. My impressions and recommendations are as follows: Impressions : - Non-thrombosed internal hemorrhoids and internal hemorrhoids that prolapse with straining, but spontaneously regress to the resting position (Grade II) found on digital rectal exam. - One 4 mm polyp in the proximal ascending colon, removed with a cold biopsy forceps. Resected and retrieved. - Biopsies were taken with a cold forceps from the entire colon for evaluation of microscopic colitis. Recommendations : - Discharge patient to home. - Resume previous diet. - Continue present medications. - Repeat colonoscopy in 5 years for surveillance based on pathology results. - Telephone my office for pathology results in 1 week. My findings are described in the full procedure note, which is enclosed. If I can be of further assistance, please feel free to contact me at Doctor phone number(s): Work: . Sincerely, Blayne Henriquez MD 04/20/2022 7:23:39 AM This report has been signed electronically.
--- NOTE | 2022-04-20 07:24 | OP.COLON_ITS ---
Patient Name: Leonela Luna Procedure Date: 04/20/2022 6:57 AM Date of : 1965 Age: 57 Procedure: Colonoscopy Indications: Screening for colorectal malignant neoplasm Providers: Blayne Henriquez MD Medicines: See the Anesthesia note for documentation of the administered medications Patient Profile: Last Colonoscopy: none. The patient's first colonoscopy is today. Complications: No immediate complications. Procedure: Pre-Anesthesia Assessment: - Prior to the procedure, a History and Physical was performed, and patient medications and allergies were reviewed. The patient's tolerance of previous anesthesia was also reviewed. The risks and benefits of the procedure and the sedation options and risks were discussed with the patient. All questions were answered, and informed consent was obtained. Prior Anticoagulants: The patient has taken no previous anticoagulant or antiplatelet agents. ASA Grade Assessment: II - A patient with mild systemic disease. After reviewing the risks and benefits, the patient was deemed in satisfactory condition to undergo the procedure. After I obtained informed consent, the scope was passed under direct vision. Throughout the procedure, the patient's blood pressure, pulse, and oxygen saturations were monitored continuously. The pediatric colonoscope was introduced through the anus and advanced to the cecum, identified by appendiceal orifice and ileocecal valve. The colonoscopy was performed without difficulty. The patient tolerated the procedure well. The quality of the bowel preparation was good. The ileocecal valve and the appendiceal orifice were photographed. Scope In: 7:04:09 AM Scope Withdrawal Time 0 hours 8 minutes 21 seconds Scope Out: 7:18:07 AM Total Procedure Duration Time 0 hours 13 minutes 58 seconds Findings: The digital rectal exam findings include non-thrombosed internal hemorrhoids and internal hemorrhoids that prolapse with straining, but spontaneously regress to the resting position (Grade II). A 4 mm polyp was found in the proximal ascending colon. The polyp was sessile. The polyp was removed with a cold biopsy forceps. Resection and retrieval were complete. Biopsies for histology were taken with a cold forceps from the entire colon for evaluation of microscopic colitis. Impression: - Non-thrombosed internal hemorrhoids and internal hemorrhoids that prolapse with straining, but spontaneously regress to the resting position (Grade II) found on digital rectal exam. - One 4 mm polyp in the proximal ascending colon, removed with a cold biopsy forceps. Resected and retrieved. - Biopsies were taken with a cold forceps from the entire colon for evaluation of microscopic colitis. Recommendation: - Discharge patient to home. - Resume previous diet. - Continue present medications. - Repeat colonoscopy in 5 years for surveillance based on pathology results. - Telephone my office for pathology results in 1 week. Procedure Code(s): --- Professional --- 08599, Colonoscopy, flexible; with biopsy, single or multiple Diagnosis Code(s): --- Professional --- Z12.11, Encounter for screening for malignant neoplasm of colon K64.1, Second degree hemorrhoids D12.2, Benign neoplasm of ascending colon CPT copyright 2017 [employer]. All rights reserved. The codes documented in this report are preliminary and upon transportation solutions manager review may be revised to meet current compliance requirements. Blayne Henriquez MD 04/20/2022 7:23:39 AM This report has been signed electronically. Number of Addenda: 0 Note Initiated On: 04/20/2022 6:57 AM
== END 2022-04-20 07:50 | disposition home or self-care (01) ==
LOC: EN 05:54 → AC 05:55
PROVIDERS: PCP Family Medicine; Referring Provider Family Medicine; Visit Provider Surgery
PROC: 0DJD8ZZ Inspection of Lower Intestinal Tract, Via Natural or Artificial Opening Endoscopic (ICD-10-PCS; CPT 45378; principal; 2022-04-20 06:55)
DX: Z12.11 Encounter for screening for malignant neoplasm of colon (principal); D12.2 Benign neoplasm of ascending colon; K64.1 Second degree hemorrhoids; I10 Essential (primary) hypertension; E03.9 Hypothyroidism, unspecified; J45.909 Unspecified asthma, uncomplicated; Z86.16 Personal history of COVID-19; Z79.899 Other long term (current) drug therapy; Z80.0 Family history of malignant neoplasm of digestive organs
CPT/HCPCS: 45380; 88305; J7120; J2405

== ENCOUNTER → 2022-05-18 | Outpatient (CLI) | payer OTHER, BC, SELFPAY ==
--- NOTE | 2022-05-18 09:07 | BI_ITS ---
MAMMOGRAPHY - BILATERAL SCREENING REASON FOR EXAM: Female, 57 years old. Routine annual screening examination. PERTINENT HISTORY: Aunt with breast cancer. Remote left stereotactic breast biopsy. TECHNIQUE: Digital bilateral breast linda (3D mammographic acquisition) in the CC and MLO projections. 2-D mediolateral oblique (MLO) and craniocaudad (CC) views of both breasts were obtained. CAD: Full Field Digital Mammography with Computer Added Detection was performed. COMPARISON: Comparison is made with prior study of 03/28/2019 and 01/12/2018. FINDINGS: Breast Composition: There are scattered areas of fibroglandular density. There are no dominant masses or suspicious calcifications. Stable small benign-appearing bilateral axillary lymph nodes. No other significant abnormalities are identified. There has been no significant change since the prior study. BI/SCRN MAMM (CAD)W/LINDA BILAT IMPRESSION: Stable bilateral screening mammogram. Yearly follow-up mammogram recommended. (A) ASSESSMENT CATEGORY: BIRADS Category 2: Benign. A letter regarding these results will be sent to the patient by the facility within 30 days. Approximately 10% of breast cancers are not detected by mammography. A normal mammogram should not delay biopsy of a clinically suspicious abnormality. [id number] Electronically Signed: Ang Morrissey MD at 10:27 EDT ,
== END | disposition home or self-care (01) ==
LOC: OPBI 09:05
PROVIDERS: PCP Family Medicine; Visit Provider Obstetrics & Gynecology
DX: Z12.31 Encounter for screening mammogram for malignant neoplasm of breast (principal)
CPT/HCPCS: 77063; 77067

== ENCOUNTER → 2022-06-24 | Outpatient (CLI) | payer OTHER, BC, SELFPAY ==
[2022-06-24 17:00] LABS: Bacteria 0 SEEN /hpf (None Seen); Mucous, Urine 0 SEEN /hpf (<or=2+); Red Blood Cells-Urine 0 SEEN /hpf (0-5); White Blood Cells 0 SEEN /hpf (0-5)
[2022-06-24 17:44] LABS: Absolute Neutrophil Count 2.9 X10^3/uL (2.0-7.7); Basophil# 0.03 X10^3/uL; Basophil% 0.6 % (0-1); Eosinophil# 0.06 X10^3/uL; Eosinophils% 1.1 % (0-5); Hematocrit 42.7 % (37-47); Lymphocyte % 32.1 % (19-41); Mean Corp Hgb Conc 32.8 g/dL (32-36); Mean Corpuscular Hgb 29.7 pg (27.0-32.0); Mean Corpuscular Volume 90.7 fL (81-99); Mean Platelet Vol. 11.1 fl (6.2-12.0); Monocyte# 0.56 X10^3/uL; Monocyte% 10.6 % (0-10); NRBC Flagged by Analyzer 0.4 % (0-5); Neutrophil # 2.93 X10^3/uL (2.7-7.7); Neutrophil % 55.4 % (47-70); Platelet Count 270 K/mm3 (150-450); RBC Distribution Width CV 13.8 % (11.6-14.6); RBC Distribution Width SD 46.7 fl (35.1-43.9); Red Blood Count 4.71 M/mm3 (4.2-5.4); White Blood Count 5.3 K/mm3 (4.4-11.0)
[2022-06-24 17:51] LABS: Color, Urine Yellow (Yellow); Glucose, Dipstick Normal (Normal); Ketone-Dipstick Negative (Negative); Leukocyte Esterase-Dipstick Negative /ul (Negative); Nitrite-Dipstick Negative (Negative); Occult Blood-Urine Negative /ul (Negative); Protein-Dipstick Negative (Negative); Urine Bilirubin Dipstick Negative (Negative); Urine Clarity Clear (Clear); Urine Urobilinogen Normal (Normal)
[2022-06-24 18:09] LABS: Squamous Epithelial Cells - UA 0-5 SEEN /hpf (5-10)
[2022-06-24 18:32] LABS: Vitamin D,25 Hydroxy 34.2 ng/mL
[2022-06-24 18:38] LABS: Anion Gap 5 (5-15); BUN 13 mg/dL (7-18); BUN/Creat Ratio 15.6 RATIO (10-20); Calcium,Total 8.6 mg/dL (8.5-10.1); Chloride 103 mmol/L (98-107); Cholesterol 232 mg/dL (200); Creatinine, Serum 0.84 mg/dL (0.55-1.02); EST Glomerular Filtration Rate 75 mL/min (>60); Est Glom Filt Rate - Afr Amer 91 mL/min (>60); Glucose 110 mg/dL (74-106); High Density Lipoprotein 57 mg/dL; Potassium 3.7 mmol/L (3.5-5.1); Sodium Level 137 mmol/L (136-145); T4 Free Direct 0.71 ng/dL (0.76-1.46); Thyroid Stim Hormone (TSH) 6.18 uIU/mL (0.358-3.74); Triglycerides 226 mg/dL; Very Low Density Lipoprotein 45 mg/dL (5-40)
[2022-06-25 17:26] LABS: Hemoglobin A1c 5.4 % (3.8-5.6)
== END | disposition home or self-care (01) ==
LOC: MFPLAB 16:58
PROVIDERS: PCP Family Medicine; Visit Provider Family Medicine
DX: E03.9 Hypothyroidism, unspecified (principal); I10 Essential (primary) hypertension; E78.5 Hyperlipidemia, unspecified; E55.9 Vitamin D deficiency, unspecified
CPT/HCPCS: 36415; 80048; 80061; 81001; 82306; 83036; 84439; 84443; 85025

== ENCOUNTER → 2022-09-21 | Outpatient (CLI) | payer OTHER, BC, SELFPAY ==
[2022-09-21 18:07] LABS: Vitamin D,25 Hydroxy 31.4 ng/mL
[2022-09-21 18:17] LABS: ALB/GLOB Ratio 1.2 RATIO (0.9-2.4); AST(SGOT) 19 U/L (15-37); Alanine Aminotransfer ALT/SGPT 36 U/L (13-56); Albumin, Serum 3.9 g/dL (3.2-5.0); Alkaline Phosphatase 82 U/L (45-117); Anion Gap 7 (5-15); BUN 13 mg/dL (7-18); BUN/Creat Ratio 19.6 RATIO (10-20); Chloride 104 mmol/L (98-107); Cholesterol 225 mg/dL (200); Creatinine, Serum 0.66 mg/dL (0.55-1.02); EST Glomerular Filtration Rate 98 mL/min (>60); Est Glom Filt Rate - Afr Amer 119 mL/min (>60); Globulin 3.2 g/dL (2.2-4.2); Glucose 92 mg/dL (74-106); High Density Lipoprotein 59 mg/dL; Potassium 3.8 mmol/L (3.5-5.1); Protein, Total 7.1 g/dL (6.4-8.2); Sodium Level 136 mmol/L (136-145); T4 Free Direct 0.72 ng/dL (0.76-1.46); Thyroid Stim Hormone (TSH) 7.41 uIU/mL (0.358-3.74); Triglycerides 165 mg/dL; Very Low Density Lipoprotein 33 mg/dL (5-40)
== END | disposition home or self-care (01) ==
LOC: MFPLAB 15:53
PROVIDERS: PCP Family Medicine; Referring Provider Family Medicine; Visit Provider Family Medicine
DX: I10 Essential (primary) hypertension (principal); E55.9 Vitamin D deficiency, unspecified; E03.9 Hypothyroidism, unspecified
CPT/HCPCS: 36415; 80053; 80061; 82306; 84439; 84443

== ENCOUNTER → 2023-05-06 | Outpatient (CLI) | payer OTHER, BC, SELFPAY ==
[2023-05-06 16:12] LABS: Bacteria 0 SEEN /hpf (None Seen); Mucous, Urine 0 SEEN /hpf (<or=2+); Red Blood Cells-Urine 0 SEEN /hpf (0-5); Squamous Epithelial Cells - UA 0 SEEN /hpf (5-10)
[2023-05-06 17:02] LABS: Color, Urine Yellow (Yellow); Glucose, Dipstick Normal (Normal); Ketone-Dipstick Negative (Negative); Leukocyte Esterase-Dipstick 500 /ul (Negative); Nitrite-Dipstick Negative (Negative); Occult Blood-Urine 250 /ul (Negative); Protein-Dipstick 30 mg/dl (Negative); Specific Gravity, Urine 1.005 (1.002-1.030); Urine Bilirubin Dipstick Negative (Negative); Urine Clarity Sl. Cloudy (Clear); Urine Urobilinogen Normal (Normal)
[2023-05-06 17:19] LABS: White Blood Cells 25-50 SEEN /hpf (0-5)
== END | disposition home or self-care (01) ==
LOC: LABSPEC 15:15
PROVIDERS: PCP Family Medicine; Visit Provider Physician Assistant Surgical
DX: R30.0 Dysuria (principal)
CPT/HCPCS: 81001; 87077; 87086; 87088; 87186

== ENCOUNTER → 2023-08-01 | Outpatient (CLI) | payer OTHER, BC, SELFPAY ==
--- NOTE | 2023-08-01 13:16 | MRI_ITS ---
STUDY: BILATERAL BREAST MR WITHOUT AND WITH CONTRAST REASON FOR EXAM: Female, 58 years old. Screening for breast cancer -- h/o fibrous tissue and shoulder injury. TECHNIQUE: Multi-sequence multi-echo imaging of both breasts was performed with a dedicated breast coil. T1-weighted and T2-weighted images were performed before the administration of contrast. T1-weighted images were also performed after the intravenous administration of 17 mL of CLARISCAN 17 contrast. COMPARISON: Bilateral mammogram dated October 11, 2016. FINDINGS: RIGHT BREAST: Scattered fibroglandular densities with minimal background enhancement. No abnormal enhancing masses or areas of non-mass enhancement in the right breast. LEFT BREAST: Scattered fibroglandular densities with minimal background enhancement. No abnormal enhancing masses or areas of non-mass enhancement in the left breast. No enlarged or abnormal lymph nodes. No abnormality in the visualized regions of the chest or liver. MRI/Breast Bilateral W/O and W IMPRESSION: No abnormality on the breast MRI with contrast. Yearly screening mammogram recommended. CATEGORY: BIRADS Category 2: Benign. A letter regarding these results will be sent to the patient by the facility within 30 days. Electronically Signed: Dionisio Mancilla MD at 9:19 EDT ,
[2023-08-01 13:54] LABS: CREATININE FINGERSTICK < 0.9 mg/dL (0.55-1.02); EGFR FINGERSTICK > 60.0000 mL/min (>60)
== END | disposition home or self-care (01) ==
LOC: MRI 13:14
PROVIDERS: PCP Internal Medicine; Referring Provider Obstetrics & Gynecology; Visit Provider Obstetrics & Gynecology
DX: Z12.31 Encounter for screening mammogram for malignant neoplasm of breast (principal)
CPT/HCPCS: 77049; A9575; A4216; C8908

== ENCOUNTER → 2025-08-19 | Outpatient (CLI) | payer OTHER, BC, SELFPAY ==
--- NOTE | 2025-08-19 13:21 | MRI_ITS ---
PROCEDURE: BREAST BILATERAL W/O AND W 08/19/2025 REASON FOR EXAM: BREAST CANCER SCREENING Screening for breast cancer -- h/o fibrous tissue and shoulder injury. TECHNIQUE: Procedure Code: [id number] Modality: MR Procedure: BREAST BILATERAL W/O AND W CONTRAST: 17 cc Clariscan. COMPARISON: Prior breast exams were compared. FINDINGS: TISSUE DENSITY: There are scattered areas of fibroglandular density. Background Parenchymal Enhancement: Minimal RIGHT Breast: No suspicious mass or non-mass enhancement. LEFT Breast: No suspicious mass or non-mass enhancement. Other Findings: No suspicious axillary or internal mammary lymph nodes. MRI/Breast Bilateral W/O and W IMPRESSION: No MRI evidence of malignancy in either breast. OVERALL FINAL ASSESSMENT BI-RADS 1: NEGATIVE RECOMMENDATION: Routine annual follow-up in 1 Year Reading Location: [id number]
--- NOTE | 2025-08-19 13:21 | MRI_ITS ---
PROCEDURE: BREAST BILATERAL W/O AND W 08/19/2025 REASON FOR EXAM: BREAST CANCER SCREENING Screening for breast cancer -- h/o fibrous tissue and shoulder injury. TECHNIQUE: Procedure Code: [id number] Modality: MR Procedure: BREAST BILATERAL W/O AND W CONTRAST: 17 cc Clariscan. COMPARISON: Prior breast exams were compared. FINDINGS: TISSUE DENSITY: There are scattered areas of fibroglandular density. Background Parenchymal Enhancement: Minimal RIGHT Breast: No suspicious mass or non-mass enhancement. LEFT Breast: No suspicious mass or non-mass enhancement. Other Findings: No suspicious axillary or internal mammary lymph nodes. MRI/Breast Bilateral W/O and W IMPRESSION: No MRI evidence of malignancy in either breast. OVERALL FINAL ASSESSMENT BI-RADS 1: NEGATIVE RECOMMENDATION: Routine annual follow-up in 1 Year Reading Location: [id number]
== END | disposition home or self-care (01) ==
LOC: OPMRI 13:18
PROVIDERS: PCP Internal Medicine; Referring Provider Obstetrics & Gynecology; Visit Provider Obstetrics & Gynecology
DX: R92.30 Dense breasts, unspecified (principal)
CPT/HCPCS: 77049; A9581; A4216; C8908